=== PATIENT | female | born 1960 | race Caucasian/White ===

== ENCOUNTER → 2019-03-02 | Outpatient (CLI) | payer BC ==
--- NOTE | 2019-03-02 12:50 | Diagnostic Imaging Report ---
INDICATION: Chest pain. COMPARISON: 12/26/2007. FINDINGS: Frontal and lateral views of the chest demonstrate midline sternal wires. The heart is slightly enlarged. The lungs are clear. There is no pneumothorax. No soft tissue gas collection is seen. Osseous structures are normal. IMPRESSION: 1. Stable cardiac enlargement without pulmonary edema or infiltrate. 2. Stable-appearing median sternotomy. Dictated by: Dictated on workstation # [id number]
== END ==
LOC: RAD FS 12:05
PROVIDERS: ATTEND Nurse Practitioner Family
DX: I51.7 Cardiomegaly (principal); R07.89 Other chest pain; Z95.1 Presence of aortocoronary bypass graft
CPT/HCPCS: 71046

== ENCOUNTER 2019-03-23 09:46 | Outpatient (RCR) | payer BC | END 2019-04-24 | disposition home or self-care (01) | LOC: CR 09:46 | PROVIDERS: ATTEND Surgery | DX: Z48.812 Encounter for surgical aftercare following surgery on the circulatory system (principal); Z95.1 Presence of aortocoronary bypass graft | CPT/HCPCS: 93798 ==

== ENCOUNTER 2019-08-14 15:14 | Emergency (ER) | payer BC ==
[~2019-08-14] VITALS: Ht 157.5 cm; Wt 94.0 kg
--- NOTE | 2019-08-14 15:37 | Diagnostic Imaging Report ---
Patient History: Right-sided chest pain. History of asthma.. Technique: Single frontal view of the chest Comparison: 03/02/2019 FINDINGS: The lung volumes are normal. No focal consolidation is seen. No large pleural effusion or pneumothorax is seen. The cardiomediastinal silhouette is normal in size and contour. Posterior skull changes of CABG are noted. No acute osseous abnormality is seen. IMPRESSION: 1. No acute pleuroparenchymal process. Dictated by: Dictated on workstation # [id number]
[2019-08-14 15:38] LABS: HEMOGLOBIN 13.2 G/DL (11.5-16.0); MEAN CORPUSCULAR HEMOGLOBIN 29 PG (25-34); WHITE BLOOD COUNT 11.7 10^3/uL (4.3-11.0)
[2019-08-14 15:39] LABS: BASOPHILS % (AUTO) 0 % (0-10); EOSINOPHILS # (AUTO) 0.4 10^3/uL (0.0-0.3); EOSINOPHILS % (AUTO) 3 % (0-10); HEMATOCRIT 40 % (35-52); LYMPHOCYTES # (AUTO) 3.8 X 10^3 (1.0-4.0); LYMPHOCYTES % (AUTO) 33 % (12-44); MEAN CORPUSCULAR HGB CONC 33 G/DL (32-36); MEAN CORPUSCULAR VOLUME 87 FL (80-99); MEAN PLATELET VOLUME 10.7 FL (7.4-10.4); MONOCYTES # (AUTO) 1.2 X 10^3 (0.0-1.0); MONOCYTES % (AUTO) 10 % (0-12); NEUTROPHILS # (AUTO) 6.3 X 10^3 (1.8-7.8); NEUTROPHILS % (AUTO) 54 % (42-75); PLATELET COUNT 252 10^3/uL (130-400); RED CELL DISTRIBUTION WIDTH 13.3 % (10.0-14.5)
[2019-08-14 15:49] LABS: ALKALINE PHOSPHATASE 132 U/L (40-136); BILIRUBIN,TOTAL 0.3 MG/DL (0.1-1.0); BUN/CREATININE RATIO 24; CALCIUM 9.2 MG/DL (8.5-10.1); CARBON DIOXIDE 26 MMOL/L (21-32); CHLORIDE 100 MMOL/L (98-107); GFR ESTIMATED 57; GLUCOSE 108 MG/DL (70-105); POTASSIUM 4.8 MMOL/L (3.6-5.0); SODIUM 138 MMOL/L (135-145)
[2019-08-14 15:50] LABS: ALANINE AMINOTRANSFERASE 51 U/L (0-55); ALBUMIN 4.1 GM/DL (3.2-4.5); TOTAL PROTEIN 8.2 GM/DL (6.4-8.2)
[2019-08-14] MEDS ORDERED: IOHEXOL 350 MG/ML 100 ML (OMNIPAQUE 350) VIAL IV ONE (16:15)
[2019-08-14] MEDS ORDERED: HOLD METFORMIN - RECEIVED CONTRAST 20 ML VIAL IV SCH (16:15)
[2019-08-14] MEDS ORDERED: NS 100 ML (IVPB) BAG IV ONE (16:15)
[2019-08-14] MEDS ORDERED: CATHETER FLUSH 10 ML SYR IV PRN (16:15)
--- NOTE | 2019-08-14 16:15 | ED General ---
General Chief Complaint: Chest Pain Stated Complaint: SOB, CHEST PAIN Nursing Triage Note: Patient reports sudden onset of right upper chest pain rated 5/10 at noon today while working at [employer]. She states she also has shortness of breath, used her albuterol nebulizer at home around 3 pm without relief. She states she had a CABG in November of 2018. Nursing Sepsis Screen: No Definite Risk Source of Information: Patient Exam Limitations: No Limitations History of Present Illness Date Seen by Provider: Aug 14, 2019 Time Seen by Provider: 16:50 Initial Comments Patient is a 58 yo with h/o of asthma, CAD and recent CABG who reports sudden onset of right sided chest wall pain starting 4 hours prior to the arrival. Chest pain is non-radiating, sharp, worse with palpation and arm movement. Repor ts mild dyspnea with wheezing. Patient breathing treatment taken at home with improvement of symptoms. No leg pain or swelling. Patient only reports mild chest pain at this time. No nausea vomiting or sweats. No flank pain and abdominal pain shoulder pain. Timing/Duration: 1-3 Hours Severity: Moderate Modifying Factors: improves with Other (SOA) Associated Systoms: Chest Pain; No Cough; Shortness of Air Allergies and Home Medications Allergies Coded Allergies: No Known Drug Allergies (Unverified , 08/14/19) Home Medications Albuterol Sulfate 6.7 Gm Hfa.aer.ad, 6.7 GM INH q6 Prescribed by: SHANIQUE ALBERTO on 08/14/191706 Prednisone 20 Mg Tab, 40 MG PO DAILY Prescribed by: SHANIQUE ALBERTO on 08/14/191706 Patient Home Medication List Home Medication List Reviewed: Yes Review of Systems Review of Systems Constitutional: see HPI EENTM: see HPI Respiratory: see HPI Gastrointestinal: see HPI Genitourinary: see HPI Musculoskeletal: see HPI Skin: see HPI Psychiatric/Neurological: See HPI Hematologic/Lymphatic: See HPI Immunological/Allergic: see HPI All Other Systems Reviewed Negative Unless Noted: Yes Past Lnucezw-Qumrfa-Yyiqfg Hx Past Med/Social Hx: Reviewed Nursing Past Med/Soc Hx Patient Social History Alcohol Use: Rarely Uses Recreational Drug Use: No Smoking Status: Never a Smoker 2nd Hand Smoke Exposure: No Recent Foreign Travel: No Contact w/Someone Who Travel: No Recent Infectious Disease Expo: No Recent Hopitalizations: No Physical Abuse: No Sexual Abuse: No Mistreated: No Fear: No Seasonal Allergies Seasonal Allergies: No Past Medical History Surgeries: Yes CABG Respiratory: Yes Asthma Cardiac: Yes Coronary Artery Disease Neurological: No Genitourinary: No Gastrointestinal: No Musculoskeletal: No Endocrine: Yes Diabetes, Non-Insulin dep HEENT: No Cancer: No Psychosocial: No Integumentary: No Physical Exam Vital Signs Vital Signs - First Documented 08/14/19 15:15 Temp 36.8 Pulse 69 Resp 16 B/P (MAP) 166/79 (108) Pulse Ox 99 O2 Delivery Room Air Capillary Refill : Less Than 3 Seconds Height, Weight, BMI Height: '" Weight: lbs. oz. kg; 37.00 BMI Method: General Appearance: No Apparent Distress, WD/WN, Anxious Eyes: Bilateral Eye Normal Inspection, Bilateral Eye PERRL, Bilateral Eye EOMI HEENT: PERRL/EOMI, Normal ENT Inspection, Pharynx Normal Neck: Full Range of Motion, Non Tender, Supple Respiratory: Chest Non Tender, Lungs Clear, No Respiratory Distress Cardiovascular: Regular Rate, Rhythm, No Edema, No Murmur Gastrointestinal: Normal Bowel Sounds, No Organomegaly, Non Tender, Soft Back: Normal Inspection, No CVA Tenderness, No Vertebral Tenderness Extremity: Normal Inspection, Non Tender, No Calf Tenderness, No Pedal Edema Neurologic/Psychiatric: Alert, Oriented x3 Progress/Results/Core Measures Suspected Sepsis Recent Fever Within 48 Hours: No Infection Criteria Present: None New/Unexplained Altered Menta: No Sepsis Screen: No Definite Risk SIRS Temperature: Pulse: 69 Respiratory Rate: 16 Laboratory Tests 08/14/19 15:20: White Blood Count 11.7H Blood Pressure 166 /79 Mean: 108 Laboratory Tests 08/14/19 15:20: Creatinine 1.00, Platelet Count 252, Total Bilirubin 0.3 Results/Orders Lab Results Laboratory Tests Test 08/14/19 15:20 08/14/19 16:10 Range/Units White Blood Count 11.7 H 4.3-11.0 10^3/uL Red Blood Count 4.53 4.35-5.85 10^6/uL Hemoglobin 13.2 11.5-16.0 G/DL Hematocrit 40 35-52 % Mean Corpuscular Volume 87 80-99 FL Mean Corpuscular Hemoglobin 29 25-34 PG Mean Corpuscular Hemoglobin Concent 33 32-36 G/DL Red Cell Distribution Width 13.3 10.0-14.5 % Platelet Count 252 130-400 10^3/uL Mean Platelet Volume 10.7 H 7.4-10.4 FL Neutrophils (%) (Auto) 54 42-75 % Lymphocytes (%) (Auto) 33 12-44 % Monocytes (%) (Auto) 10 0-12 % Eosinophils (%) (Auto) 3 0-10 % Basophils (%) (Auto) 0 0-10 % Neutrophils # (Auto) 6.3 1.8-7.8 X 10^3 Lymphocytes # (Auto) 3.8 1.0-4.0 X 10^3 Monocytes # (Auto) 1.2 H 0.0-1.0 X 10^3 Eosinophils # (Auto) 0.4 H 0.0-0.3 10^3/uL Basophils # (Auto) 0.0 0.0-0.1 10^3/uL D-Dimer 0.63 H 0.00-0.49 UG/ML Sodium Level 138 135-145 MMOL/L Potassium Level 4.8 3.6-5.0 MMOL/L Chloride Level 100 98-107 MMOL/L Carbon Dioxide Level 26 21-32 MMOL/L Anion Gap 12 5-14 MMOL/L Blood Urea Nitrogen 24 H 7-18 MG/DL Creatinine 1.00 0.60-1.30 MG/DL Estimat Glomerular Filtration Rate 57 BUN/Creatinine Ratio 24 Glucose Level 108 H 70-105 MG/DL Calcium Level 9.2 8.5-10.1 MG/DL Corrected Calcium 9.1 8.5-10.1 MG/DL Total Bilirubin 0.3 0.1-1.0 MG/DL Aspartate Amino Transf (AST/SGOT) 50 H 5-34 U/L Alanine Aminotransferase (ALT/SGPT) 51 0-55 U/L Alkaline Phosphatase 132 40-136 U/L Troponin I < 0.30 <0.30 NG/ML Total Protein 8.2 6.4-8.2 GM/DL Albumin 4.1 3.2-4.5 GM/DL Urine Color YELLOW Urine Clarity CLEAR Urine pH 5.5 5-9 Urine Specific [place] 1.015 L 1.016-1.022 Urine Protein NEGATIVE NEGATIVE Urine Glucose (UA) NEGATIVE NEGATIVE Urine Ketones NEGATIVE NEGATIVE Urine Nitrite NEGATIVE NEGATIVE Urine Bilirubin NEGATIVE NEGATIVE Urine Urobilinogen 0.2 NORMAL MG/DL Urine Leukocyte Esterase NEGATIVE NEGATIVE Urine RBC (Auto) NEGATIVE NEGATIVE Urine RBC NONE /HPF Urine WBC 0-2 /HPF Urine Squamous Epithelial Cells 0-2 /HPF Urine Crystals NONE /LPF Urine Bacteria NEGATIVE /HPF Urine Casts PRESENT /LPF Urine Hyaline Casts 10-25 H /LPF Urine Mucus SMALL H /LPF Urine Culture Indicated NO My Orders Orders - SHANIQUE ALBERTO DO Cbc With Automated Diff (08/14/19 15:25) Comprehensive Metabolic Panel (08/14/19 15:25) Troponin I Fs (08/14/19 15:25) Chest 1 View Ap/Pa Only (08/14/19 15:25) Fibrin Degradation Products (08/14/19 15:25) Ekg Tracing (08/14/19 15:25) Ct Angio Chest W (08/14/19 16:05) Ua Culture If Indicated (08/14/19 16:06) Iohexol Injection (Omnipaque 350 Mg/Ml 1 (08/14/19 16:15) Received Contrast (Hold Metformin- Contr (08/14/19 16:15) Sodium Chloride Flush (Catheter Flush Sy (08/14/19 16:15) Ns (Ivpb) (Sodium Chloride 0.9% Ivpb Bag (08/14/19 16:15) Medications Given in ED Current Medications Medications Dose Ordered Sig/Harlan Route Start Time Stop Time Status Last Admin Dose Admin Iohexol 100 ml ONCE ONCE IV 08/14/19 16:15 08/14/19 16:16 DC 08/14/19 16:29 100 ML Sodium Chloride 10 ml NEEDED PRN IV 08/14/19 16:15 08/14/19 16:29 10 ML Sodium Chloride 100 ml ONCE ONCE IV 08/14/19 16:15 08/14/19 16:16 DC 08/14/19 16:29 100 ML Vital Signs/I&O 08/14/19 08/14/19 15:15 15:15 Temp 36.8 Pulse 69 Resp 16 B/P (MAP) 166/79 (108) Pulse Ox 99 O2 Delivery Room Air Room Air Capillary Refill : Less Than 3 Seconds Blood Pressure Mean: 108 Departure Communication (Admissions) EKG, labs, imaging studies reviewed. Symptoms most consistent with asthma exace rbation. Lab otherwise reassuring. I did discuss with the patient the abnormal CT findings of epigastric lymph nodes with instructions to follow up with PCP. Patient denies signs or symptoms suggestive of GI infection. Patient may benefit from a dedicated CT scan of the abdomen and pelvis in 2-3 weeks along for potential resolution of large lymph nodes if secondary to infectious cause. Patient verbalizes understanding and agreement discharge instructions and is comfortable with discharge plan. Impression Primary Impression: Chest wall pain Additional Impression: Asthma Disposition: HOME, SELF-CARE Condition: Stable Departure-Patient Inst. Referrals: [facility] (PCP) Primary Care Physician TESS TIM APRN (Family) Primary Care Physician Patient Instructions: Asthma, Adult (DC), Chest Pain Add. Discharge Instructions: Please take newly prescribed medications. Follow-up with your PCP in the next 3- 5 days and review ED visit, labs and abnormal CT result. You may benefit from a dedicated CT abdomen and pelvis next to 3 weeks. In the meantime, return to the ED if new or worsening symptoms. All discharge instructions reviewed with patient and/or family. Voiced understanding. Scripts Albuterol Sulfate (Proventil Hfa) 6.7 Gm Hfa.aer.ad 6.7 GM INH q6, #1 GM Prov: SHANIQUE ALBERTO DO 08/14/19 Prednisone (Prednisone) 20 Mg Tab 40 MG PO DAILY, #6 TAB 0 Refills Prov: SHANIQUE ALBERTO DO 08/14/19 SHANIQUE ALBERTO DO Aug 14, 2019 16:15
[2019-08-14 16:27] LABS: CLARITY,URINE CLEAR; COLOR,URINE YELLOW; GLUCOSE, URINE (UA) NEGATIVE (NEGATIVE); PH,URINE 5.5 (5-9); PROTEIN,URINE NEGATIVE (NEGATIVE)
[2019-08-14 16:28] LABS: BACTERIA,URINE NEGATIVE /HPF; BILIRUBIN,URINE NEGATIVE (NEGATIVE); KETONES,URINE NEGATIVE (NEGATIVE); LEUKOCYTE ESTERASE ,URINE NEGATIVE (NEGATIVE); NITRITE,URINE NEGATIVE (NEGATIVE); SQUAMOUS EPITHELIAL CELL,UR 0-2 /HPF; WBC,URINE 0-2 /HPF
--- NOTE | 2019-08-14 16:51 | Diagnostic Imaging Report ---
PROCEDURE: CT angiography of the chest with contrast. TECHNIQUE: Multiple contiguous axial images were obtained through the chest after uneventful bolus administration of intravenous contrast. 3D reconstructed CTA MIP acquisitions were also performed. Auto Exposure Controls were utilized during the CT exam to meet ALARA standards for radiation dose reduction. INDICATION: Right-sided chest pain. Shortness of air. COMPARISON: None FINDINGS: There is no CT evidence of pulmonary embolus to the 1st subsegmental division of the pulmonary arteries. There is mild scattered calcified and noncalcified aortic atherosclerosis. Note is also made of at least moderate calcified coronary atherosclerotic disease. The heart is mildly enlarged. There is no large pericardial effusion. No pathologically enlarged or morphologically abnormal adenopathy is seen within the mediastinum, carlos, or axilla. Evaluation of the lung blas demonstrates no focal consolidation, large effusion, or pneumothorax. 6 mm micronodules noted within the posterior medial margins of the right apex (image 19, series 4). Osseous structures show no acute abnormalities. Sternotomy wires are noted. Included portions of the upper abdomen show a few prominent appearing perigastric lymph nodes. The largest of these is seen posterior to the left lobe of the liver superior to the pancreas and measures 2.1 x 1.7 cm (image 108, series 3). IMPRESSION: 1. No evidence of acute pulmonary embolus. 2. No other acute cardiopulmonary process identified. 3. Small micronodule within the posterior medial right apex. Please see below for follow-up recommendations. 4. Prominent perigastric lymph nodes within the upper abdomen. These are of uncertain significance or etiology. May want to consider follow-up dedicated CT of the abdomen. PULMONARY NODULE FOLLOW-UP Single nodule: <6 mm: * Low risk patient - no routine follow up * High risk patient - optional at 12 months 6-8 mm in size: * Low risk patient - Ct at 6-12 months, then consider at 18-24 months * High risk patient - Ct at 6-12 months, then at 18-24 months >8 mm * Low risk patient - consider CT at 3 months, PET/CT or tissue sampling * High risk patient - consider CT at 3 months, PET/CT, or tissue sampling (Certain patients at high risk with suspicious nodule morphology, upper lobe location, or both may warrant 12-month follow-up) Dictated by: Dictated on workstation # [id number]
[2019-08-14] MEDS ORDERED: PRD20T PO (17:07)
[2019-08-14] MEDS ORDERED: ALBU6.7H8 INH (17:07)
[2019-08-14 17:33] VITALS: BP 149/82
== END 2019-08-14 17:41 | disposition home or self-care (01) ==
LOC: EDUNIT# 15:14 → ER FS 15:15
DX: R07.89 Other chest pain (principal); J45.909 Unspecified asthma, uncomplicated; E11.9 Type 2 diabetes mellitus without complications; I25.10 Atherosclerotic heart disease of native coronary artery without angina pectoris; Z95.1 Presence of aortocoronary bypass graft
CPT/HCPCS: 36415; 71045; 71275; 80053; 81000; 84484; 85025; 85379; 93005

== ENCOUNTER → 2019-08-24 | Outpatient (CLI) | payer BC ==
[~2019-08-24] MED LIST: ALBU6.7H8 INH; PRD20T PO
--- NOTE | 2019-08-24 10:08 | Diagnostic Imaging Report ---
PROCEDURE: CT abdomen and pelvis without contrast. TECHNIQUE: Multiple contiguous axial images were obtained through the abdomen and pelvis without the use of intravenous contrast. Auto Exposure Controls were utilized during the CT exam to meet ALARA standards for radiation dose reduction. INDICATION: Periportal and perigastric lymph nodes in the upper abdomen were partially visualized on recent chest CT. Abdominal CT performed as further evaluation. No priors for direct comparison. Study correlated with overlapped images obtained at chest CT 08/14/2019. FINDINGS: Node at the leonard hepatis just above the pancreatic head today measures 1.8 x 1.3 cm previously 2.1 x 1.6 cm. Previously there were some small lymph nodes medial to the gastric cardia and fundus which are no longer appreciable. A small portacaval lymph node today has a diameter of 11 mm and previously had a long axis of 17 mm. No suspicious or dominant obed mass. No adverse development. The favorable changes suggest reduction and mild nonspecific reactive mesenteric adenopathy. Spleen size is normal. There are multiple benign calcified splenic granulomata chronic. The unopacified liver parenchyma appeared unremarkable. The gallbladder at this exam appeared within normal limits. There is no bile duct dilatation. The adrenals are negative. The kidneys unobstructed and normal. There is no bowel obstruction. There is no ascites, abscess, hematoma or fluid collection. Uterus, adnexa and unopacified urinary bladder unremarkable. The appendix surgically absent. IMPRESSION: Improvements in mild shotty mesenteric lymph nodes within normal limits on follow-up suggests reduction or resolution of prior mild nonspecific reactive obed disease. No acute or suspicious finding. No adverse development. Dictated by: Dictated on workstation # [id number]
== END ==
LOC: RAD FS 09:42
PROVIDERS: ATTEND Nurse Practitioner Family
DX: R59.0 Localized enlarged lymph nodes (principal); R19.7 Diarrhea, unspecified
CPT/HCPCS: 74176

== ENCOUNTER 2019-10-19 01:43 | Emergency (ER) | payer BC ==
[~2019-10-19] VITALS: Ht 157.5 cm; Wt 98.6 kg
[2019-10-19] MEDS ORDERED: RT-ALBUTEROL/IPRATROPIUM 3 ML (DUONEB) VIAL INH ONE (02:00)
--- NOTE | 2019-10-19 02:05 | ED Dyspnea ---
General Chief Complaint: Respiratory Problems Stated Complaint: SOB Source of Information: Patient, Family History of Present Illness Date Seen by Provider: Oct 19, 2019 Time Seen by Provider: 01:44 Initial Comments 59 -year-old female presenting with complaints of shortness of breath. She has been coughing for the last few weeks. Today she was having increased shortness of breath. She felt like she could not catch her breath. She did have tightness in her chest and said that it was going through to her back. She has no nausea or vomiting. She denies any pain going up into her neck or jaw. She is occasionally bringing up some phlegm that is white to yellow-colored. She has taken several hits off of her inhaler today to try and help with her cough and shortness of breath. She was still feeling like she couldn't catch her breath. She does feel like it was worse when she tries down. She also has noticed that she had some increased swelling in her legs and feet the last few days. This do es improve by morning when she has her feet up overnight. She does have a history of being diabetic, hypertensive, asthmatic, and having coronary artery disease with a four-vessel CABG in November 2018. Allergies and Home Medications Allergies Coded Allergies: No Known Drug Allergies (Unverified , 08/14/19) Home Medications Albuterol Sulfate 6.7 Gm Hfa.aer.ad, 6.7 GM INH q6 Prescribed by: SHANIQUE ALBERTO on 08/14/191706 Prednisone 20 Mg Tab, 40 MG PO DAILY Prescribed by: SHANIQUE ALBERTO on 08/14/191706 Patient Home Medication List Home Medication List Reviewed: Yes Review of Systems Review of Systems Constitutional: No chills, No fever EENTM: other (feels that she is dry); No ear pain, No epistaxis, No nose congestion Respiratory: cough, dyspnea on exertion; No hemoptysis; orthopnea, phlegm (at times she is bringing up yellow-colored phlegm with cough ), short of breath; No stridor; wheezing (occasionally) Cardiovascular: chest pain (tightness in chest and pain from coughing so much), edema (in feet and ankles in last few days but better by morning after having her feet up overnight), palpitations (after using inhaler frequently); No syncope; vascular heart diseas Gastrointestinal: no symptoms reported Genitourinary: no symptoms reported Musculoskeletal: other (chest wall pain from coughing so much in last few weeks) Skin: No rash Psychiatric/Neurological: No Symptoms Reported Past Nrwgpyj-Wqydge-Deqmba Hx Past Med/Social Hx: Reviewed Nursing Past Med/Soc Hx Patient Social History 2nd Hand Smoke Exposure: No Recent Foreign Travel: No Contact w/Someone Who Travel: No Recent Hopitalizations: No Seasonal Allergies Seasonal Allergies: No Past Medical History Surgeries: Yes CABG Respiratory: Yes Asthma Cardiac: Yes Coronary Artery Disease, High Cholesterol, Hypertension Neurological: No Genitourinary: No Gastrointestinal: No Musculoskeletal: No Endocrine: Yes Diabetes, Non-Insulin dep HEENT: No Cancer: No Psychosocial: No Integumentary: No Physical Exam Vital Signs Vital Signs - First Documented 10/19/19 10/19/19 01:57 02:04 Temp 37.4 Pulse 74 Resp 24 B/P (MAP) 163/53 (89) Pulse Ox 94 O2 Delivery Room Air O2 Flow Rate 2.00 Capillary Refill : Height, Weight, BMI Height: '" Weight: lbs. oz. kg; 37.00 BMI Method: General Appearance: No Apparent Distress, WD/WN HEENT: PERRL/EOMI, Pharynx Normal Neck: Full Range of Motion, Normal Inspection, Non Tender, Supple; No Carotid Bruit Respiratory: Lungs Clear, Normal Breath Sounds; No No Accessory Muscle Use, No No Respiratory Distress, No Crackles; Decreased Breath Sounds; No Stridor, No Wheezing; Other (tender to palpation of anterior chest wall) Cardiovascular: Regular Rate, Rhythm, No Gallop, No JVD, No Murmur, Normal Peripheral Pulses, Other (trace to 1+ edema in BLE) Gastrointestinal: Normal Bowel Sounds, No Pulsatile Mass, Non Tender, Soft Extremity: Normal Capillary Refill, Normal Range of Motion, Non Tender, No Calf Tenderness, Pedal Edema (trace to 1+ edema in BLE) Neurologic/Psychiatric: Alert, Oriented x3, No Motor/Sensory Deficits, Normal 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, 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 Skin: Normal Color, Warm/Dry Progress/Results/Core Measures Results/Orders Lab Results Laboratory Tests Test 10/19/19 02:12 Range/Units White Blood Count 10.7 4.3-11.0 10^3/uL Red Blood Count 4.13 L 4.35-5.85 10^6/uL Hemoglobin 11.8 11.5-16.0 G/DL Hematocrit 36 35-52 % Mean Corpuscular Volume 88 80-99 FL Mean Corpuscular Hemoglobin 29 25-34 PG Mean Corpuscular Hemoglobin Concent 33 32-36 G/DL Red Cell Distribution Width 13.1 10.0-14.5 % Platelet Count 200 130-400 10^3/uL Mean Platelet Volume 10.5 H 7.4-10.4 FL Neutrophils (%) (Auto) 63 42-75 % Lymphocytes (%) (Auto) 26 12-44 % Monocytes (%) (Auto) 8 0-12 % Eosinophils (%) (Auto) 3 0-10 % Basophils (%) (Auto) 0 0-10 % Neutrophils # (Auto) 6.7 1.8-7.8 X 10^3 Lymphocytes # (Auto) 2.8 1.0-4.0 X 10^3 Monocytes # (Auto) 0.8 0.0-1.0 X 10^3 Eosinophils # (Auto) 0.3 0.0-0.3 10^3/uL Basophils # (Auto) 0.0 0.0-0.1 10^3/uL Sodium Level 138 135-145 MMOL/L Potassium Level 4.3 3.6-5.0 MMOL/L Chloride Level 103 98-107 MMOL/L Carbon Dioxide Level 23 21-32 MMOL/L Anion Gap 12 5-14 MMOL/L Blood Urea Nitrogen 17 7-18 MG/DL Creatinine 0.79 0.60-1.30 MG/DL Estimat Glomerular Filtration Rate > 60 BUN/Creatinine Ratio 22 Glucose Level 232 H 70-105 MG/DL Calcium Level 9.0 8.5-10.1 MG/DL Corrected Calcium 9.2 8.5-10.1 MG/DL Magnesium Level 2.0 1.6-2.4 MG/DL Total Bilirubin 0.3 0.1-1.0 MG/DL Aspartate Amino Transf (AST/SGOT) 42 H 5-34 U/L Alanine Aminotransferase (ALT/SGPT) 47 0-55 U/L Alkaline Phosphatase 154 H 40-136 U/L Troponin I < 0.30 <0.30 NG/ML Pro-B-Type Natriuretic Peptide 2007.0 H <75.0 PG/ML Total Protein 7.5 6.4-8.2 GM/DL Albumin 3.8 3.2-4.5 GM/DL My Orders Orders - KELSIE FERNANDES MD Cbc With Automated Diff (10/19/19 01:57) Comprehensive Metabolic Panel (10/19/19 01:57) Albuterol/Ipra Inhalation Soln (Duoneb I (10/19/19 02:00) Magnesium (10/19/19 01:57) Chest Pa/Lat (2 View) (10/19/19 01:57) Ekg Tracing (10/19/19 01:57) O2 (10/19/19 01:57) Ed Iv/Invasive Line Start (10/19/19 01:57) Sputum Culture (10/19/19 01:57) Monitor-Rhythm Ecg Trace Only (10/19/19 01:57) Svn Small Volume Nebulizer (10/19/19 01:57) Troponin I Fs (10/19/19 01:57) Probnp Fs (10/19/19 01:57) Medications Given in ED Current Medications Medications Dose Ordered Sig/Harlan Route Start Time Stop Time Status Last Admin Dose Admin Albuterol/ Ipratropium 3 ml ONCE ONCE INH 10/19/19 02:00 10/19/19 02:01 DC 10/19/19 02:04 3 ML Vital Signs/I&O 10/19/19 10/19/19 10/19/19 10/19/19 01:57 02:04 02:13 03:16 Temp 37.4 37.2 Pulse 74 62 Resp 24 20 B/P (MAP) 163/53 (89) 146/45 Pulse Ox 94 91 91 98 O2 Delivery Room Air Nasal Cannula Nasal Cannula Nasal Cannula O2 Flow Rate 2.00 2.00 Progress Progress Note #1: Progress Note check basic labs and CXR with ECG for her shortness of breath with cough. Since she is having edema in LE she could be having some heart failure on top of her asthma. She may also be having just an Asthma exacerbation, or pneumonia, or viral URI with bronchospasm, or new cardiac disease/UT with resulting pulmonary edema/dyspnea. Will try a Duoneb treatment while seeing what her labs, CXR and ECG demonstrate. Progress Note #2: Time: 02:46 Progress Note CBC is stable without elevation of her white blood cell count and hemoglobin is stable at 11.8. Her chemistry shows an elevated glucose level at 233. Her troponin is less than 0.3. Her other electrolytes are normal without acute significant abnormality. Her chest x-ray on my review of the 2 view chest films shows increased pulmonary vascular congestion with some fluid in the right fissure. I did not appreciate any acute infiltrate. After that DuoNeb breathing treatment her O2 sat remained in the 98-100% range. Her BNP is elevated to 2007. I do not have prior value to compare to for her. However considering her chest x-ray and the increased edema in her legs she likely is having some fluid retention and mild CHF exacerbation. This would help explain her increased difficulty breathing with the combination of some fluid overload on top of her asthma and a possible viral or respiratory illness. We will try giving her a dose of Lasix and discuss with the patient about increasing her Lasix at home. She states that she has not been has regular with taking this recently. Progress Note #3: Progress Note pt felt like she was breathing better. will have her increase her lasix from 40 to 80 mg for the next 3 days and see how she does with that. Also advised that she could increase her breathing treatments to every 4 hours while awake if needed for shortness of breath and cough. Check back with clinic and if worsening return or seek medical care sooner. Initial ECG Impression Date: Oct 19, 2019 Initial ECG Impression Time: 02:25 Initial ECG Rate: 73 Initial ECG Rhythm: Normal Sinus Initial ECG Comparisson: Unchanged Comment Sinus rhythm with a heart rate of 72 bpm. IA interval [address] elevation. QT interval of 406 ms and QT corrected interval 448 ms. She has no acute change from prior tracings. Diagnostic Imaging Diagonstic Imaging: Xray Plain Films/CT/US/NM/MRI: chest Comments On my review of her 2 view CXR she has increased pulmonary vascular congestion with some fluid in the right fissure. No effusion is seen. No definite infiltr ate. Reviewed: Reviewed by Me Departure Impression Primary Impression: Pulmonary edema Qualified Codes: J81.0 - Acute pulmonary edema Additional Impressions: Shortness of breath Asthma exacerbation Qualified Codes: J45.41 - Moderate persistent asthma with (acute) exacerbation Disposition: 01 HOME, SELF-CARE Condition: Stable Departure-Patient Inst. Decision time for Depature: 03:09 Referrals: [facility] (PCP) Primary Care Physician TESS TIM APRN (Family) Primary Care Physician Patient Instructions: Heart Failure, Adult (DC), Shortness of Breath (Dyspnea) (DC), Asthma, Adult (DC) Add. Discharge Instructions: For the next 3 days double your dose of Furosemide (Lasix) from 40 mg to 80 mg a day to help get more fluid off your lungs and legs. This will help with your shortness of breath and cough Check with Tess Tim in clinic this next week about your breathing or return if having worsening symptoms You could use your inhaler or nebulizer up to every 4 hours if you need to for shortness of breath and cough. All discharge instructions reviewed with patient and/or family. Voiced understanding. KELSIE FERNANDES MD Oct 19, 2019 02:05
[2019-10-19 02:18] LABS: BASOPHILS % (AUTO) 0 % (0-10); EOSINOPHILS # (AUTO) 0.3 10^3/uL (0.0-0.3); EOSINOPHILS % (AUTO) 3 % (0-10); HEMATOCRIT 36 % (35-52); HEMOGLOBIN 11.8 G/DL (11.5-16.0); LYMPHOCYTES # (AUTO) 2.8 X 10^3 (1.0-4.0); LYMPHOCYTES % (AUTO) 26 % (12-44); MEAN CORPUSCULAR HEMOGLOBIN 29 PG (25-34); MEAN CORPUSCULAR HGB CONC 33 G/DL (32-36); MEAN CORPUSCULAR VOLUME 88 FL (80-99); MEAN PLATELET VOLUME 10.5 FL (7.4-10.4); MONOCYTES # (AUTO) 0.8 X 10^3 (0.0-1.0); MONOCYTES % (AUTO) 8 % (0-12); NEUTROPHILS # (AUTO) 6.7 X 10^3 (1.8-7.8); NEUTROPHILS % (AUTO) 63 % (42-75); PLATELET COUNT 200 10^3/uL (130-400); RED CELL DISTRIBUTION WIDTH 13.1 % (10.0-14.5); WHITE BLOOD COUNT 10.7 10^3/uL (4.3-11.0)
[2019-10-19 02:41] LABS: ALKALINE PHOSPHATASE 154 U/L (40-136); BILIRUBIN,TOTAL 0.3 MG/DL (0.1-1.0); BUN/CREATININE RATIO 22; CARBON DIOXIDE 23 MMOL/L (21-32); CHLORIDE 103 MMOL/L (98-107); CREATININE SERUM 0.79 MG/DL (0.60-1.30); GFR ESTIMATED > 60; GLUCOSE 232 MG/DL (70-105); POTASSIUM 4.3 MMOL/L (3.6-5.0); SODIUM 138 MMOL/L (135-145)
[2019-10-19 02:42] LABS: ALANINE AMINOTRANSFERASE 47 U/L (0-55); ALBUMIN 3.8 GM/DL (3.2-4.5); TOTAL PROTEIN 7.5 GM/DL (6.4-8.2)
[2019-10-19 03:16] VITALS: BP 146/45
--- NOTE | 2019-10-19 06:41 | Diagnostic Imaging Report ---
INDICATION: Shortness of breath. Comparison made with prior examination 08/14/2019. FINDINGS: The heart size is normal. There is venous congestion. There are patchy bibasilar infiltrates. There is no pleural effusion or pneumothorax. There has been previous median sternotomy. IMPRESSION: Patchy bibasilar infiltrates. Central pulmonary venous congestion. Dictated by: Dictated on workstation # [id number]
== END 2019-10-19 03:18 | disposition home or self-care (01) ==
LOC: EDUNIT# 01:43 → ER FS 01:48
DX: J81.1 Chronic pulmonary edema (principal); J45.901 Unspecified asthma with (acute) exacerbation; E11.9 Type 2 diabetes mellitus without complications; I10 Essential (primary) hypertension; I25.10 Atherosclerotic heart disease of native coronary artery without angina pectoris; E78.00 Pure hypercholesterolemia, unspecified; Z95.1 Presence of aortocoronary bypass graft; Z79.52 Long term (current) use of systemic steroids
CPT/HCPCS: 36415; 71046; 80053; 83735; 83880; 84484; 85025; 93005; 93041; 94640

== ENCOUNTER → 2020-04-28 | Outpatient (CLI) | payer OTHER ==
--- NOTE | 2020-04-28 15:01 | Diagnostic Imaging Report ---
INDICATION: Blood pressure issues and difficult breathing. TIME OF EXAM: 2:36 PM. COMPARISON: Correlation is made with the prior chest from 10/19/2019. FINDINGS: Changes of median sternotomy are noted. The lungs are clear. No infiltrates are detected. The pulmonary vascularity is normal. No infiltrate, effusion, or pneumothorax is identified. IMPRESSION: No acute cardiopulmonary process is detected. Dictated by: Dictated on workstation # [id number]
== END ==
LOC: RAD FS 14:25
PROVIDERS: ATTEND Nurse Practitioner Family
DX: R07.89 Other chest pain (principal); Z98.890 Other specified postprocedural states
CPT/HCPCS: 71046

== ENCOUNTER → 2021-03-11 | Outpatient (CLI) | payer OTHER ==
[2021-03-11 14:36] VITALS: BP 128/53
== END ==
LOC: CARD 14:01
PROVIDERS: ATTEND Internal Medicine Cardiovascular Disease
DX: R07.9 Chest pain, unspecified (principal)
CPT/HCPCS: 93351

== ENCOUNTER → 2021-04-15 | Outpatient (CLI) | payer OTHER ==
[~2021-04-15] VITALS: Ht 157 cm; Wt 99.0 kg
[~2021-04-15] MED LIST changes: +CATHETER FLUSH 10 ML SYR IV PRN; +REGADENOSON 0.4 MG/5 ML SYR (LEXISCAN) IV ONE
[2021-04-15 13:28] VITALS: BP 132/87
--- NOTE | 2021-04-15 17:04 | STRESS TEST ---
DATE OF SERVICE: 04/15/2021 LEXISCAN MYOVIEW STRESS TEST REPORT REFERRING PHYSICIAN: [facility], Lamar Vera. Baseline heart rate is 72. Baseline blood pressure 132/87. Baseline EKG is sinus rhythm with frequent PVCs, ventricular couplets. In summary, the patient was injected with 10.22 mCi of technetium-99 Myoview and the resting images were obtained. Then, the patient received 0.4 mg of Lexiscan followed by 31.5 mCi of technetium-99 Myoview. Images were reviewed. EKG was monitored. CONCLUSION: 1. The patient tolerated Lexiscan well. 2. Baseline frequent PVCs and ventricular couplets and one 3-beat triplets. Frequent ventricular bigeminy. 3. Breast attenuation with mild reversible ischemia involving the basal to mid anterior wall and anterolateral wall, probably secondary to breast attenuation. 4. Normal left ventricular size, EF 56%. Job ID: [id number] DocumentID: [id number] Dictated Date: 04/15/2021 15:39:52 Paedodontist Date: 04/15/2021 17:04:32 Dictated By: DEVAUGHN CAIN MD
== END ==
LOC: CARD 12:15
PROVIDERS: ATTEND Internal Medicine Cardiovascular Disease
DX: I25.10 Atherosclerotic heart disease of native coronary artery without angina pectoris (principal); I10 Essential (primary) hypertension
CPT/HCPCS: 78452; 93017; A9502

== ENCOUNTER 2021-04-24 10:00 | Day surgery (SDC) | payer OTHER ==
[~2021-04-24] VITALS: Ht 157 cm; Wt 98.0 kg
[2021-04-24] VITALS (13 sets, daily range): BP systolic 131–162; BP diastolic 62–106
[2021-04-24 08:15] LABS: HEMATOCRIT 41 % (35-52); HEMOGLOBIN 13.5 g/dL (11.5-16.0); MEAN CORPUSCULAR HEMOGLOBIN 29 pg (25-34); MEAN CORPUSCULAR HGB CONC 33 g/dL (32-36); MEAN CORPUSCULAR VOLUME 88 fL (80-99); MEAN PLATELET VOLUME 10.7 fL (9.0-12.2); PLATELET COUNT 273 10^3/uL (130-400); WHITE BLOOD COUNT 9.4 10^3/uL (4.3-11.0)
[2021-04-24 08:24] LABS: PROTHROMBIN TIME PATIENT 13.3 SEC (12.2-14.7)
[2021-04-24 08:31] LABS: BILIRUBIN,TOTAL 0.4 MG/DL (0.1-1.0); CALCIUM 9.5 MG/DL (8.5-10.1); CREATININE SERUM 1.01 MG/DL (0.60-1.30); POTASSIUM 4.5 MMOL/L (3.6-5.0)
--- NOTE | 2021-04-24 08:31 | Diagnostic Imaging Report ---
Indication: Hypertension, coronary artery disease Comparison: 08/14/2019 Findings: Single view of the chest demonstrates cardiac enlargement with slight central vascular congestion. There is no pneumothorax or effusion. Osseous structures stable. Sternal wires midline. Impression: Cardiac enlargement with slight central vascular congestion. Dictated by: Dictated on workstation # [id number]
[~2021-04-24 10:00] MED LIST changes: +AMLO-167 PO; +ASPI-999 PO; +ATOR80TA76 PO; -CATHETER FLUSH 10 ML SYR IV PRN; +FURO40TA4 PO; +GLIP1TAB6 PO; +METO50TA15 PO; +MONT10TA32 PO; +NS IV 1000 ML 1,000 ML IV SCH; +POTA10TA36 PO; -REGADENOSON 0.4 MG/5 ML SYR (LEXISCAN) IV ONE; +VIT1TABL57 PO; +[UNRECOGNIZED DRUG - OTHER] PO
[2021-04-24] MEDS ORDERED: fentaNYL INJ 100 MCG/2 ML AMP ONE (10:14)
[2021-04-24] MEDS ORDERED: MIDAZOLAM 5 MG/5 ML (VERSED) VIAL ONE (10:15)
--- NOTE | 2021-04-24 11:08 | Conscious Sedation/ASA ---
Conscious Sedation Pre-Proced Time 10:00 ASA Score 3 For ASA 3 and 4: Consider anesthesia and medical clearance. Also, for patients with a history of failed moderate sedation consider anesthesia. Airway Lungs Heart ASA score ASA 1: a normal healthy patient ASA 2: a patient with a mild systemic disease (mid diabetes, controlled hypertension, obesity x ASA 3: a patient with a severe systemic disease that limits activity (angina, COPD, prior Myocardial infarction) ASA 4: a patient with an incapacitating disease that is a constant threat to life (CHF, renal failure) ASA 5: a moribund patient not expected to survive 24 hrs. (ruptured aneurysm) ASA 6: a declared brain- patient whose organs are being harvested. For emergent operations, add the letter E after the classification Mallampati Classification Grade 3 Sedation Plan Analgesia, Amnesia, Plan communicated to team members, Discussed options with patient/fam, Discussed risks with patient/fam The patient is an appropriate candidate to undergo the planned procedure, sedation, and anesthesia. The patient immediately re-assessed prior to indication. DEVAUGHN CAIN MD Apr 24, 2021 11:08
--- NOTE | 2021-04-24 11:10 | Discharge Inst-Post CATH ---
Discharge Inst-CATH/EP Problems Reviewed?: Yes Post Cardiac Cath/EP D/C Inst Follow Up/Plan Appointment with Dr Mercado in 2-4 weeks <b>CARDIAC CATH/EP PROCEDURE DISCHARGE INSTRUCTIONS</b> ACTIVITY * Go Home directly and rest. * Limit activity of the leg (or wrist if it was used) for 7 days including aerobics, swimming, jogging, bicycling, etc. * Restrict stair-climbing for 7 days if possible, if not, climb up with your non-cath leg, then bring together on the same step. * Avoid lifting, pushing, pulling or excessive movement of the affected extremity for 7 days. * Customary sexual activity may be resumed after 2 days-use caution not to use a position that strains or causes pain to the affected extremity. * No driving for 24 hours. * NO SMOKING. * Avoid straining for bowel movements for 7 days. * Gentle walking on level ground is allowed. * Returning to work will depend on the type of procedure and the results. Your doctor will discuss this with you. CALL YOUR DOCTOR FOR ANY OF THE FOLLOWING: *If bleeding from the puncture site occurs- Apply gentle pressure to site with clean cloth and call your doctor or EMS. * If a knot or lump forms under the skin, increases in size, or causes pain. * If bruising appears to be worsening or moving further down your leg instead of disappearing. * Temperature above 101 F. CARE OF YOUR GROIN INCISION; * Bruising or purple discoloration of the skin near the puncture site is common. * You may shower only, no bathtub bathing for 5 days. Be careful to avoid slipping as your leg may feel stiff. * If a closure device was used on your femoral artery, please see the attached guide regarding care of the device and your leg. * Leave dressing on FOR 24 hours. CARE OF YOUR WRIST INCISION; * Bruising or purple discoloration of the skin near the puncture site is common. * You may shower. * DO NOT submerge wrist. * Leave dressing on FOR 24 hours. DEVAUGHN MERCADO MD Apr 24, 2021 11:10
[2021-04-24] MEDS ORDERED: NS IV 1000 ML 1,000 ML IV SCH (11:15)
[2021-04-24] MEDS ORDERED: PATIENT MAY USE OWN MEDS, ALL PO SCH (11:15)
--- NOTE | 2021-04-24 11:16 | Cardiac Cath Report ---
Cardiac Cath Report Physician (s)/Associate Professor Of Pathology (s) Physician DEVAUGHN CAIN MD Pre-Procedure Diagnosis Pre-Procedure Diagnosis: Coronary artery disease Post-Procedure Note Procedure Start Date: Apr 24, 2021 Name of Procedure: Left heart catheterization Vein graft angiogram GALEANA angiogram Aortic root angiogram Aortic arch angiogram Findings/Procedure Note PROCEDURE NOTE: 60 years old lady with history of coronary artery disease, CABG, had an abnormal stress test, scheduled for cardiac catheterization possible PTCA After explaining the procedure to the patient, all pros and cons were explained, all questions were answered. The patient signed the consent and then she was placed on the cardiac catheterization laboratory. Groin was prepped SL fashion local anesthesia was used. Sheath placed in the artery. Robbin right and left catheter were used to access the coronary system.Vein Graft evaluated. GALEANA evaluated. Pigtail was used to access the left ventricular cavity. Left ventriculogram was not done, pressure was measured Aortic arch angiogram was done due to the heavy calcification in the aortic arch and aortic root angiogram also was done. At the end of the procedure the sheath was removed. Closure device was deployed FINDINGS: Hemodynamics LV 106/13, end-diastolic pressure of 13 Aorta 104/45 mean of 69 ANATOMY: Left Main is free of obstructive disease Left Anterior Descending has moderate stenosis at the midportion, GALEANA to LAD is patent Left Circumflex is moderate in size, the first obtuse marginal branch is smaller artery with moderate stenosis proximally, the second obtuse marginal branch has moderate stenosis, the vein graft to the obtuse marginal branch is occluded Right Coronary Artery is moderate in size with severe mid right coronary artery stenosis, the vein graft to the right coronary artery is patent GALEANA to LAD is patent with small vessel disease distally Vein Graft evaluation showed only 1 patent vein graft which is the vein graft to the right coronary artery and it it is attached to the distal right coronary artery with good flow. Patient was reported to have a total of 4 bypass graft, only 2 were identified LV Gram was not done Aorta evaluation done with aortic root angiogram which showed calcification in the aortic root, no dissection or aneurysm, no significant aortic regurgitation Aortic arch angiogram was done showing atherosclerotic plaques in the aortic arch, no dissection or aneurysm, normal origin of the left subclavian artery, left carotid and brachiocephalic artery CONCLUSION: 1. Severe stenosis in the proximal right coronary artery with patent vein graft to the right coronary artery with small vessel disease distally 2. Moderate stenosis in the proximal and mid LAD with patent GALEANA to LAD with good flow distally, small vessel disease. 3. Patient reported having CABG x4, only 2 bypass graft were identified, probably the other 2 vein grafts were to the diagonal and obtuse marginal branch and they were occluded 4. Moderate stenosis in the proximal first obtuse marginal branch and at the mid second OM 5. Normal left ventricular end-diastolic pressure DISCUSSION AND RECOMMENDATION: Medical therapy is recommended no intervention is needed Anesthesia Type: Conscious Sedation Estimated blood loss (mL): 35 ml Contrast Amount: 135 ml Total Radiation Dose: 937 mGy Post-Procedure Diagnosis Post-operative diagnosis: Coronary artery disease Chest pain Hypertension Hyperlipidemia DEVAUGHN CAIN MD Apr 24, 2021 11:16 am
== END 2021-04-24 15:50 | disposition home or self-care (01) ==
LOC: CATH 10:00 → SDC 11:25 → CATH 15:50
PROVIDERS: ATTEND Internal Medicine Cardiovascular Disease
DX: R94.39 Abnormal result of other cardiovascular function study (principal); I25.10 Atherosclerotic heart disease of native coronary artery without angina pectoris; I10 Essential (primary) hypertension; E78.5 Hyperlipidemia, unspecified; I25.89 Other forms of chronic ischemic heart disease; I49.3 Ventricular premature depolarization; E11.9 Type 2 diabetes mellitus without complications; I65.23 Occlusion and stenosis of bilateral carotid arteries; Z79.899 Other long term (current) drug therapy; Z79.82 Long term (current) use of aspirin; Z95.1 Presence of aortocoronary bypass graft
CPT/HCPCS: 36221; 71045; 80053; 80061; 85027; 85610; 85730; 87081; 93459; 93567; C1760; C1894; 36415

== ENCOUNTER → 2021-06-25 | Outpatient (CLI) | payer OTHER ==
[~2021-06-25] MED LIST changes: -NS IV 1000 ML 1,000 ML IV SCH
--- NOTE | 2021-06-25 09:14 | Diagnostic Imaging Report ---
PROCEDURE: US Hepatic (Liver). TECHNIQUE: Multiple real-time grayscale images were obtained over the right upper quadrant in various projections. INDICATION: Elevated liver enzymes Liver parenchyma has increased echogenicity consistent with fatty infiltration. Gallbladder is clear with no stones or wall thickening. Common duct is not dilated. Portal vein is patent with hepatopetal flow. Pancreas appears normal. Right kidney measures 11.8 cm in length and appears normal. There is no ascites. Aorta and IVC appear normal. IMPRESSION: Hepatic steatosis Dictated by: Dictated on workstation # [id number]
== END ==
LOC: RAD FS 08:06
PROVIDERS: ATTEND Internal Medicine Gastroenterology
DX: B18.2 Chronic viral hepatitis C (principal); K76.0 Fatty (change of) liver, not elsewhere classified
CPT/HCPCS: 76705

== ENCOUNTER → 2021-08-10 | Outpatient (CLI) | payer OTHER ==
--- NOTE | 2021-08-10 09:10 | Diagnostic Imaging Report ---
CLINICAL INDICATION: Patient with pain in the thoracic spine. No known injury. EXAM: X-ray of the thoracic spine, AP and lateral views. COMPARISON: None. FINDINGS: Limited visualization of the upper thoracic spine on the lateral view due to overlapping anatomical structures. There is no acute thoracic spine fracture or dislocation. There are moderately hypertrophic spurs throughout the thoracic spine. Sternotomy changes are noted. IMPRESSION: Thoracic spine degenerative disease with no acute fracture or dislocation. Dictated by: Dictated on workstation # [id number]
== END ==
LOC: RAD FS 08:33
PROVIDERS: ATTEND Nurse Practitioner Family
DX: M47.814 Spondylosis without myelopathy or radiculopathy, thoracic region (principal)
CPT/HCPCS: 72070

== ENCOUNTER → 2021-10-05 | Outpatient (CLI) | payer OTHER ==
[~2021-10-05] VITALS: Ht 157.5 cm; Wt 100.0 kg
[~2021-10-05] MED LIST changes: +ACETAMINOPHEN 500 MG TAB (TYLENOL) PO PRN; +BAMLANIVIMAB 700 MG/ETESEVIMAB 1,400 MG IN NS IV ONE; +EPINEPHrine INJECTION 1 MG/ML AMP IM PRN; +MONT-40 PO; -MONT10TA32 PO; +ONDANSETRON 4 MG/2 ML (SDV) Z0FRAN IV PRN; -POTA10TA36 PO; +POTA10TA37 PO; +diphenhydrAMINE 50 MG/ML INJ (BENADRYL) IV PRN
[2021-10-05 10:53] VITALS: BP 125/49
[2021-10-05 12:23] VITALS: BP 141/53
== END ==
LOC: INFUSION 10:48
PROVIDERS: ATTEND Nurse Practitioner Family
DX: U07.1 COVID-19 (principal)

== ENCOUNTER → 2022-03-04 | Outpatient (CLI) | payer OTHER ==
[~2022-03-04] MED LIST changes: -ACETAMINOPHEN 500 MG TAB (TYLENOL) PO PRN; -BAMLANIVIMAB 700 MG/ETESEVIMAB 1,400 MG IN NS IV ONE; -EPINEPHrine INJECTION 1 MG/ML AMP IM PRN; -ONDANSETRON 4 MG/2 ML (SDV) Z0FRAN IV PRN; +RT-ALBUTEROL SULF 2.5 MG/3 ML PRE-MIX VIAL INH ONE; -diphenhydrAMINE 50 MG/ML INJ (BENADRYL) IV PRN
== END ==
LOC: RT 14:15
PROVIDERS: ATTEND Nurse Practitioner Family
DX: R05.9 Cough, unspecified (principal); R06.02 Shortness of breath
CPT/HCPCS: 94060; 94726; 94729

== ENCOUNTER 2022-06-08 12:40 | Emergency (ER) | payer OTHER ==
[~2022-06-08] VITALS: Ht 157 cm; Wt 93.0 kg
[~2022-06-08 12:40] MED LIST changes: -RT-ALBUTEROL SULF 2.5 MG/3 ML PRE-MIX VIAL INH ONE
[2022-06-08 12:59] LABS: BASOPHILS # (AUTO) 0.1 10^3/uL (0.0-0.1); BASOPHILS % (AUTO) 0 % (0-10); EOSINOPHILS # (AUTO) 0.3 10^3/uL (0.0-0.3); EOSINOPHILS % (AUTO) 3 % (0-10); HEMATOCRIT 37 % (35-52); HEMOGLOBIN 12.4 g/dL (11.5-16.0); LYMPHOCYTES # (AUTO) 4.1 10^3/uL (1.0-4.0); LYMPHOCYTES % (AUTO) 33 % (12-44); MEAN CORPUSCULAR HEMOGLOBIN 29 pg (25-34); MEAN CORPUSCULAR HGB CONC 34 g/dL (32-36); MEAN CORPUSCULAR VOLUME 85 fL (80-99); MEAN PLATELET VOLUME 10.1 fL (9.0-12.2); MONOCYTES # (AUTO) 0.8 10^3/uL (0.0-1.0); MONOCYTES % (AUTO) 7 % (0-12); NEUTROPHILS # (AUTO) 7.3 10^3/uL (1.8-7.8); NEUTROPHILS % (AUTO) 58 % (42-75); PLATELET COUNT 272 10^3/uL (130-400); WHITE BLOOD COUNT 12.6 10^3/uL (4.3-11.0)
[2022-06-08 13:01] VITALS: BP_SYST 100; BP_SYST 127; BP_SYST 134; BP_DIAS 63; BP_DIAS 72; BP_DIAS 83
--- NOTE | 2022-06-08 13:09 | Diagnostic Imaging Report ---
EXAMINATION: Chest, one view. HISTORY: Chest pain. COMPARISON: 04/24/2021. FINDINGS: Heart size and pulmonary vasculature are normal. The lungs are clear without consolidation, pleural effusion, or pneumothorax. Surgical changes from median sternotomy. IMPRESSION: 1. No acute radiographic abnormality in the chest. Dictated by: Dictated on workstation # [id number]
[2022-06-08] MEDS ORDERED: NS IV 1000 ML 500 ML IV SCH (13:15)
[2022-06-08 13:29] LABS: ALANINE AMINOTRANSFERASE 20 U/L (0-55); ALKALINE PHOSPHATASE 139 U/L (40-136); BILIRUBIN,TOTAL 0.3 MG/DL (0.1-1.0); BUN/CREATININE RATIO 18; CALCIUM 9.1 MG/DL (8.5-10.1); CARBON DIOXIDE 26 MMOL/L (21-32); CHLORIDE 100 MMOL/L (98-107); CREATININE SERUM 1.16 MG/DL (0.60-1.30); GFR ESTIMATED 54; GLUCOSE 136 MG/DL (70-105); POTASSIUM 4.5 MMOL/L (3.6-5.0); SODIUM 137 MMOL/L (135-145)
[2022-06-08 13:30] LABS: ALBUMIN 4.3 GM/DL (3.2-4.5); TOTAL PROTEIN 7.8 GM/DL (6.4-8.2)
[2022-06-08 14:02] VITALS: BP 146/51
--- NOTE | 2022-06-08 14:06 | ED Cardiac General ---
History of Present Illness General Chief Complaint: Chest Pain Stated Complaint: DIZZINESS; NAUSEA; NEAR SYNCOPE Nursing Triage Note: PT REPORTS SHE HAD A CABG 2 YEARS AGO AND WHEN SHE HAD A CATH LAST YEAR THEY TOLD HER THAT 2 OF HER BYPASSES WERE PARTIALLY BLOCKED AGAIN. SHE REPORTS TUESDAY SHE BECAME DIZZY AND VOMITED IN THE BOOK STORE. SHE HAS BEEN HAVING SOME DIZZINESS WAX AND WANE FOR SEVERAL WEEKS. 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 Source: patient Exam Limitations: no limitations History of Present Illness Date Seen by Provider: Jun 08, 2022 Time Seen by Provider: 12:30 Initial Comments Patient is a 61-year-old female who presents with dizziness upon standing today while at work. Dizziness was positional and relieved with rest. She reports mild nausea denies chest pain palpitations shortness of breath. She reports feeling anxious regarding cardiac testing tomorrow. She has history of CAD, and CABG. She denies shortness of breath nausea, vomiting and sweats. No leg pain or swelling. Patient's systolic blood pressure is 86. Patient takes Lasix, losartan, amlodipine and Toprol daily. No fevers chills, sweats. No urinary frequency urgency or dysuria. No leg pain or swelling. No other acute symptoms or complaint. Timing/Duration: 1-3 hours Severity: mild Location: other Activities at Onset: none, other Prior CP/Workup: non-cardiac, other Modifying Factors: improves with other NTG SL MAT SEWER: No Associated Systoms: Other Allergies and Home Medications Allergies Coded Allergies: No Known Drug Allergies (Unverified , 08/14/19) Patient Home Medication List Home Medication List Reviewed: Yes Albuterol Sulfate (Proventil Hfa) 6.7 Gm Hfa.aer.ad, 6.7 GM INH q6 Prescribed by: SHANIQUE ALBERTO on 08/14/19 1707 Amlodipine Besylate/Benazepril (Amlodipine-Benazepril 10-40 mg) 1 Each Capsule, 1 EACH PO DAILY, (Reported) Entered as Reported by: MAHIN HACKETT on 04/24/21 0811 Aspirin (Aspirin) 81 Mg Tab.chew, 81 MG PO DAILY, (Reported) Entered as Reported by: MAHIN HACKETT on 04/24/21 0811 Atorvastatin Calcium (Atorvastatin Calcium) 80 Mg Tablet, 80 MG PO HS, (Reported) Entered as Reported by: MAHIN HACKETT on 04/24/21810 Furosemide (Furosemide) 40 Mg Tablet, 40 MG PO DAILY, (Reported) Entered as Reported by: MAHIN HACKETT on 04/24/21810 Glipizide/Metformin HCl (Glipizide-Metformin 5-500 mg) 1 Each Tablet, 1 EACH PO AC, (Reported) Entered as Reported by: MAHIN HACKETT on 04/24/21810 Metoprolol Tartrate (Metoprolol Tartrate) 50 Mg Tablet, 50 MG PO BID, (Reported) Entered as Reported by: MAHIN HACKETT on 04/24/21810 Montelukast Sodium (Montelukast Sodium) 10 Mg Tablet, 10 MG PO HS, (Reported) Entered as Reported by: MAHIN HACKETT on 04/24/21810 Potassium Chloride (Potassium Chloride) 10 Meq Tab.er.prt, 10 MEQ PO DAILY, (Reported) Entered as Reported by: MAHIN HACKETT on 04/24/21810 Vit D3 & K/Berberine HCl/Hops (Ostera Tablet) 1 Each Tablet, 1 EACH PO DAILY, (Reported) Entered as Reported by: MAHIN HACKETT on 04/24/21810 [Active Heart] , 1 EACH PO DAILY, (Reported) Entered as Reported by: MAHIN HACKETT on 04/24/21810 Review of Systems Review of Systems Constitutional: see HPI EENTM: See HPI Respiratory: See HPI Cardiovascular: See HPI Gastrointestinal: See HPI Genitourinary: See HPI Skin: see HPI Psychiatric/Neurological: See HPI Endocrine: See HPI Hematologic/Lymphatic: See HPI All Other Systems Reviewed Negative Unless Noted: No Past Nraffep-Iwctsq-Yeqyhe Hx Patient Social History Tobacco Use?: No Use of E-Cig and/or Vaping dev: No Substance use?: No Alcohol Use?: No Pt feels they are or have been: No Immunizations Up To Date Tetanus Booster (TDap): Unknown First/Initial COVID19 Vaccinat: 2020 Second COVID19 Vaccination Kapil: 2020 COVID19 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 Seasonal Allergies Seasonal Allergies: Yes Past Medical History Surgery/Hospitalization HX: CABG 1999 Surgeries: Yes CABG, Open Heart Surgery Respiratory: Yes Asthma Currently Using CPAP: No Currently Using BIPAP: No Cardiac: Yes Coronary Artery Disease, High Cholesterol, Hypertension Neurological: No Genitourinary: No Gastrointestinal: Yes Hepatitis Musculoskeletal: No Endocrine: Yes Diabetes, Non-Insulin dep HEENT: No Cancer: No Psychosocial: No Integumentary: No Physical Exam Vital Signs Vital Signs - First Documented 06/08/22 12:45 Temp 36.3 Pulse 82 Resp 18 B/P (MAP) 166/76 (106) Pulse Ox 100 O2 Delivery Room Air Capillary Refill : Less Than 3 Seconds Height, Weight, BMI Height: '" Weight: lbs. oz. kg; 37.00 BMI Method: General Appearance: WD/WN HEENT: PERRL/EOMI, TMs Normal Neck: Full Range of Motion, Normal Inspection, Non Tender Respiratory: Chest Non Tender, Lungs Clear Cardiovascular: Regular Rate, Rhythm, No Edema Gastrointestinal: Non Tender, Soft Neurologic/Psychiatric: Alert, Oriented x3, Normal Mood/Affect, colon therapist II-XII Norm as Tested Focused Exam Sepsis Stage: Ruled Out Progress/Results/Core Measures Results/Orders Lab Results Laboratory Tests Test 06/08/22 12:50 Range/Units White Blood Count 12.6 H 4.3-11.0 10^3/uL Red Blood Count 4.33 3.80-5.11 10^6/uL Hemoglobin 12.4 11.5-16.0 g/dL Hematocrit 37 35-52 % Mean Corpuscular Volume 85 80-99 fL Mean Corpuscular Hemoglobin 29 25-34 pg Mean Corpuscular Hemoglobin Concent 34 32-36 g/dL Red Cell Distribution Width 12.9 10.0-14.5 % Platelet Count 272 130-400 10^3/uL Mean Platelet Volume 10.1 9.0-12.2 fL Immature Granulocyte % (Auto) 0 % Neutrophils (%) (Auto) 58 42-75 % Lymphocytes (%) (Auto) 33 12-44 % Monocytes (%) (Auto) 7 0-12 % Eosinophils (%) (Auto) 3 0-10 % Basophils (%) (Auto) 0 0-10 % Neutrophils # (Auto) 7.3 1.8-7.8 10^3/uL Lymphocytes # (Auto) 4.1 H 1.0-4.0 10^3/uL Monocytes # (Auto) 0.8 0.0-1.0 10^3/uL Eosinophils # (Auto) 0.3 0.0-0.3 10^3/uL Basophils # (Auto) 0.1 0.0-0.1 10^3/uL Immature Granulocyte # (Auto) 0.0 0.0-0.1 10^3/uL Sodium Level 137 135-145 MMOL/L Potassium Level 4.5 3.6-5.0 MMOL/L Chloride Level 100 98-107 MMOL/L Carbon Dioxide Level 26 21-32 MMOL/L Anion Gap 11 5-14 MMOL/L Blood Urea Nitrogen 21 H 7-18 MG/DL Creatinine 1.16 0.60-1.30 MG/DL Estimat Glomerular Filtration Rate 54 BUN/Creatinine Ratio 18 Glucose Level 136 H 70-105 MG/DL Calcium Level 9.1 8.5-10.1 MG/DL Corrected Calcium 8.9 8.5-10.1 MG/DL Total Bilirubin 0.3 0.1-1.0 MG/DL Aspartate Amino Transf (AST/SGOT) 18 5-34 U/L Alanine Aminotransferase (ALT/SGPT) 20 0-55 U/L Alkaline Phosphatase 139 H 40-136 U/L Troponin I < 0.30 <0.30 NG/ML Total Protein 7.8 6.4-8.2 GM/DL Albumin 4.3 3.2-4.5 GM/DL My Orders Orders - SHANIQUE ALBERTO DO Cbc With Automated Diff (06/08/22 12:53) Comprehensive Metabolic Panel (06/08/22 12:53) Troponin I Fs (06/08/22 12:53) Ekg Tracing (06/08/22 12:53) Chest 1 View Ap/Pa Only (06/08/22 12:53) Ns Iv 1000 Ml (Sodium Chloride 0.9%) (06/08/22 13:15) Vital Signs/I&O 06/08/22 06/08/22 12:45 13:01 Temp 36.3 Pulse 82 75 78 81 Resp 18 B/P (MAP) 166/76 (106) 127/63 (84) 134/72 (92) 100/83 (89) Pulse Ox 100 O2 Delivery Room Air Blood Pressure Mean: 89 Departure Communication (Admissions) EKG: Normal sinus rhythm, no acute ST-T wave changes, normal CO, QRS, QTc intervals. Left atrial enlargement Chest x-ray: No acute cardiopulmonary disease Patient orthostatics positive with dizziness and hypotension upon standing. IV fluids given with provement systolic blood pressure greater than 140 on recheck. Labs imaging and EKG reviewed and reassuring. Recommendations for supportive care watchful waiting and cardiology follow-up as scheduled tomorrow. Return precautions reviewed. Patient verbalizes understanding agreement discharge instructions prior to departure Impression Primary Impression: Orthostatic hypotension Disposition: HOME, SELF-CARE Condition: Stable Departure-Patient Inst. Decision time for Depature: 14:09 Referrals: TESS TIM APRN (PCP) Primary Care Physician [facility] (Family) Primary Care Physician Patient Instructions: Orthostatic Hypotension (DC) Add. Discharge Instructions: You were evaluated in the emergency department for dizziness likely due to low blood pressure. Please hold evening dose of amlodipine and continue all other medications as directed. 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 Return to the ED if new or worsening symptoms. All discharge instructions reviewed with patient and/or family. Voiced understanding. SHANIQUE ALBERTO DO Jun 08, 2022 14:06
== END 2022-06-08 14:12 | disposition home or self-care (01) ==
LOC: EDUNIT# 12:40 → ER FS 12:42
DX: I95.1 Orthostatic hypotension (principal); Z79.899 Other long term (current) drug therapy
CPT/HCPCS: 36415; 71045; 80053; 84484; 85025; 93005; 93041

== ENCOUNTER → 2022-06-09 | Outpatient (CLI) | payer OTHER ==
[~2022-06-09] VITALS: Ht 157 cm; Wt 92.0 kg
[~2022-06-09] MED LIST changes: +CATHETER FLUSH 10 ML SYR IVP PRN; +REGADENOSON 0.4 MG/5 ML SYR (LEXISCAN) IV ONE
[2022-06-09 12:53] VITALS: BP 137/83
--- NOTE | 2022-06-09 13:51 | Cardiology Stress Test Report ---
Stress Test Report Date of Procedure/Referring: Date of Procedure: Jun 09, 2022 [facility] Admitting Physician Admitting Physician: Attending Physician: Carol Hassan Indications: CP Baseline Heart Rate: 92 Baseline Blood Pressure: Blood Pressure Systolic: 137 Blood Pressure Diastolic: 83 Baseline Vitals Vital Signs Date Time Temp Pulse Resp B/P (MAP) Pulse Ox O2 Delivery O2 Flow Rate FiO2 06/09/22 12:53 93 137/83 (101) Baseline EKG: Baseline EKG: NSR, PVCs Summary After explaining the procedure to the patient, she signed a consent and then brought to the stress nuclear laboratory. Patient received 0.4 mg Lexiscan for stress test, ECG, heart rate and blood pressure were monitored continuously. Resting and stress dose of radio tracer were injected, imaging was acquired and reviewed in short axis, horizontal long axis and vertical long axis views. TID: 1.18 SSS: 11 SDS: 8 EF: 60 1. Patient tolerated Lexiscan well, had some chest pain with Lexiscan injection 2. Frequent PVCs noted during test 3. Reversible ischemia involving the anterolateral and inferolateral wall 4. Normal left ventricular size with hypokinesia at the lateral wall, ejection fraction 60% Copy Copies To 1: [facility] DEVAUGHN CAIN MD Jun 09, 2022 13:51
== END ==
LOC: CARD 11:45
PROVIDERS: ATTEND Physician Assistant
DX: R07.9 Chest pain, unspecified (principal)
CPT/HCPCS: 78452; 93017

== ENCOUNTER 2022-06-14 09:00 | Day surgery (SDC) | payer OTHER ==
[~2022-06-14] VITALS: Ht 157.5 cm; Wt 94.0 kg
[2022-06-14] VITALS (26 sets, daily range): BP systolic 120–177; BP diastolic 59–104
--- NOTE | 2022-06-14 07:34 | Cardiac Procedure Note-CS/ASA ---
Pre-Procedure Note Pre-Op Procedure Note Date of Available H&P: Jun 14, 2022 Date H&P Reviewed: Jun 14, 2022 Time H&P Reviewed: 07:34 History & Physical: H&P Reviewed, Patient Examed, No changes noted Pre-Operative Diagnosis: Coronary artery disease Conscious Sedation Pre-Proced Time 07:34 ASA Score 3 For ASA 3 and 4: Consider anesthesia and medical clearance. Also, for patients with a history of failed moderate sedation consider anesthesia. Airway Lungs Heart ASA score ASA 1: a normal healthy patient ASA 2: a patient with a mild systemic disease (mid diabetes, controlled hypertension, obesity x ASA 3: a patient with a severe systemic disease that limits activity (angina, COPD, prior Myocardial infarction) ASA 4: a patient with an incapacitating disease that is a constant threat to life (CHF, renal failure) ASA 5: a moribund patient not expected to survive 24 hrs. (ruptured aneurysm) ASA 6: a declared brain- patient whose organs are being harvested. For emergent operations, add the letter E after the classification Mallampati Classification Grade 3 Sedation Plan Analgesia, Amnesia, Plan communicated to team members, Discussed options with patient/fam, Discussed risks with patient/fam The patient is an appropriate candidate to undergo the planned procedure, sedation, and anesthesia. The patient immediately re-assessed prior to indication. DEVAUGHN CAIN MD Jun 14, 2022 07:34
[2022-06-14 07:35] LABS: BILIRUBIN,URINE NEGATIVE (NEGATIVE); CLARITY,URINE CLEAR; COLOR,URINE YELLOW; GLUCOSE, URINE (UA) NEGATIVE (NEGATIVE); KETONES,URINE NEGATIVE (NEGATIVE); LEUKOCYTE ESTERASE ,URINE NEGATIVE (NEGATIVE); NITRITE,URINE POSITIVE (NEGATIVE); PH,URINE 5.5 (5-9); PROTEIN,URINE 1+ (NEGATIVE)
[2022-06-14 07:36] LABS: HEMATOCRIT 38 % (35-52); HEMOGLOBIN 12.5 g/dL (11.5-16.0); MEAN CORPUSCULAR HEMOGLOBIN 28 pg (25-34); MEAN CORPUSCULAR HGB CONC 33 g/dL (32-36); MEAN CORPUSCULAR VOLUME 86 fL (80-99); MEAN PLATELET VOLUME 9.9 fL (9.0-12.2); PLATELET COUNT 257 10^3/uL (130-400); WHITE BLOOD COUNT 10.5 10^3/uL (4.3-11.0)
[2022-06-14 07:43] LABS: BACTERIA,URINE LARGE /HPF; RBC,URINE RARE /HPF; SQUAMOUS EPITHELIAL CELL,UR 0-2 /HPF
[2022-06-14 07:44] LABS: HYALINE CASTS, URINE 0-2 /LPF
[2022-06-14 07:53] LABS: INR 1.1 (0.8-1.4); PROTHROMBIN TIME PATIENT 14.3 SEC (12.2-14.7)
[2022-06-14 07:58] LABS: ALBUMIN 4.2 GM/DL (3.2-4.5); BILIRUBIN,TOTAL 0.4 MG/DL (0.1-1.0); CALCIUM 9.8 MG/DL (8.5-10.1); CREATININE SERUM 1.07 MG/DL (0.60-1.30); POTASSIUM 3.9 MMOL/L (3.6-5.0); TOTAL PROTEIN 7.9 GM/DL (6.4-8.2)
--- NOTE | 2022-06-14 08:02 | Diagnostic Imaging Report ---
INDICATION: Coronary artery disease. Precatheterization workup. EXAMINATION: Chest 06/14/2022 COMPARISON: 06/08/2022 FINDINGS: There are sternotomy wires and mediastinal clips. The heart is stable. Pulmonary vasculature normal. Lungs and pleural spaces clear. No infiltrates, effusions or pneumothorax. IMPRESSION: 1. Postoperative findings with no acute cardiopulmonary process. Dictated by: Dictated on workstation # [id number]
[~2022-06-14 09:00] MED LIST changes: +AMLO-251 PO; +ASPI-1238 PO; +ATOR40TA70 PO; +BUDE10.26 IH; -CATHETER FLUSH 10 ML SYR IVP PRN; +CINNAMON 1000 MG PO; +FISH1CAP5 PO; +HEParin (CATH LAB) 2,000 ML IV ONE; +HEParin 1000 UNIT/ML (10ML VIAL) FOR BOLUS ONE; +ISOS30TA82 PO; +LIDOCAINE 1% INJ 20 ML VIAL ONE; +LOSA100T57 PO; +METF750T45 PO; +MIDAZOLAM 5 MG/5 ML (VERSED) VIAL ONE; +NITRO DRIP 25000 MCG/D5W 0 ML IV ONE; +NS IV 1000 ML 1,000 ML IV SCH; +NS IV 1000 ML 1,000 ML ONE; -REGADENOSON 0.4 MG/5 ML SYR (LEXISCAN) IV ONE; +fentaNYL INJ 100 MCG/2 ML AMP ONE
[2022-06-14] MEDS ORDERED: ASPIRIN 325 MG (5 GR) TABLET ONE (09:25)
[2022-06-14] MEDS ORDERED: TICAGRELOR 90 MG TABLET (BRILINTA) PO ONE (09:25)
[2022-06-14] MEDS ORDERED: PATIENT MAY USE OWN MEDS, ALL PO SCH (09:30)
--- NOTE | 2022-06-14 09:32 | Cardiac Cath Report ---
Cardiac Cath Report Physician (s)/Hydroelectric Station Operator (s) Physician DEVAUGHN CAIN MD Pre-Procedure Diagnosis Pre-Procedure Diagnosis: Coronary artery disease Post-Procedure Note Procedure Start Date: Jun 14, 2022 Name of Procedure: Left heart catheterization Vein graft angiogram GALEANA angiogram Stenting of the circumflex artery Findings/Procedure Note PROCEDURE NOTE: 61-year-old lady with history of coronary artery disease, has been having chest pain, had an abnormal stress test and scheduled for cardiac catheterization possible PTCA. After explaining the procedure to the patient, all pros and cons were explained, all questions were answered. The patient signed the consent and then she was placed on the cardiac catheterization laboratory. Groin was prepped SL fashion local anesthesia was used. Sheath placed in the artery. Robbin right and left catheter were used to access the coronary system.Vein Graft evaluated. GALEANA evaluated. Patient received 5000 units of heparin, had severe stenosis in the distal circumflex artery, I started with FL 4.0 guide advanced wire and I was unable to cross the lesion. I advanced 2.0 balloon for support of the wire and then I was able to cross the lesion but I was unable to cross the balloon across the lesion. I decided to exchanged the guide I remove the wire and the balloon then I used CLS guide and repositioned the BMW wire distal in the circumflex artery, I had some difficulty advancing the balloon but I was able to advance it then I did multiple inflation using trek 2.5 x 20 then I proceeded with stent deployment using skypoint 2.5 x 18 deployed under 14 reggie up to 2.77, angiogram showing excellent results. At the end of the procedure the sheath was removed. Closure device was deployed FINDINGS: ANATOMY: Left Main is free of obstructive disease Left Anterior Descending is calcified with moderate disease, GALEANA to the LAD is patent with competitive flow Left Circumflex has calcification proximally with moderate stenosis, distally subtotal occlusion, successful balloon angioplasty then deployment of portillo point 2.5 x 18 mm expanded to 2.77 mm with excellent results. There are 2 vein grafts known to be occluded Right Coronary Artery has severe stenosis at the midportion, vein graft to the right coronary artery is patent GALEANA to the LAD is patent, there is competitive flow through the nome artery Vein Graft evaluation showed 3 vein grafts. 2 vein graft to the diagonal and obtuse marginal are known to be occluded Vein graft to the right coronary artery is patent with good flow distally, small vessel disease CONCLUSION: 1. Severe stenosis/subtotal occlusion in the distal circumflex artery with known occluded vein graft to the circumflex artery, successful balloon angioplasty then stent deployment using portillo point 2.5 x 18 expanded to 2.77 with excellent results. 2. Severe stenosis in the mid right coronary artery with patent vein graft to the distal right coronary artery with excellent flow distally, small vessel disease 3. Moderate stenosis in the proximal LAD with patent GALEANA to LAD with competitive flow DISCUSSION AND RECOMMENDATION: Patient was started on aspirin and Brilinta. Continue to maximize medical therapy Anesthesia Type: Conscious Sedation Estimated blood loss (mL): 25 ml Contrast Amount: 150 ml Total Radiation Dose: 1278 mGy Post-Procedure Diagnosis Post-operative diagnosis: Chest pain Coronary artery disease Hypertension Hyperlipidemia DEVAUGHN CAIN MD Jun 14, 2022 09:32
[2022-06-14] MEDS: NS IV 1000 ML 1,000 ML IV SCH ×2 (10:15→19:30)
[2022-06-14] MEDS ORDERED: CATHETER FLUSH 10 ML SYR IVP PRN (10:15)
[2022-06-14] MEDS: TICAGRELOR 90 MG TABLET (BRILINTA) PO SCH (20:07)
[2022-06-14] MEDS ORDERED: BUDESONIDE/FORMOTEROL 160/4.5 MCG INHALER IH SCH (21:00)
[2022-06-14] MEDS ORDERED: RT-ALBUTEROL SULF 2.5 MG/3 ML PRE-MIX VIAL INH SCH (21:00)
[2022-06-14] MEDS ORDERED: MONTELUKAST 10 MG (SINGULAIR) TAB PO SCH (21:00)
[2022-06-14] MEDS ORDERED: meTOprolol TARTRATE 50 MG (LOPRESSOR) TAB PO SCH (21:00)
[2022-06-15 04:12] VITALS: BP 142/67
[2022-06-15] MEDS ORDERED: METF750T45 PO (05:50)
[2022-06-15] MEDS ORDERED: TICA90TA PO (05:50)
--- NOTE | 2022-06-15 05:51 | Discharge Inst-Post CATH ---
Discharge Inst-CATH/EP Problems Reviewed?: Yes Post Cardiac Cath/EP D/C Inst Follow Up/Plan Hold Metformin for [address] Mercado in 2-4 weeks <b>CARDIAC CATH/EP PROCEDURE DISCHARGE INSTRUCTIONS</b> ACTIVITY * Go Home directly and rest. * Limit activity of the leg (or wrist if it was used) for 7 days including aerobics, swimming, jogging, bicycling, etc. * Restrict stair-climbing for 7 days if possible, if not, climb up with your non-cath leg, then bring together on the same step. * Avoid lifting, pushing, pulling or excessive movement of the affected extremity for 7 days. * Customary sexual activity may be resumed after 2 days-use caution not to use a position that strains or causes pain to the affected extremity. * No driving for 24 hours. * NO SMOKING. * Avoid straining for bowel movements for 7 days. * Gentle walking on level ground is allowed. * Returning to work will depend on the type of procedure and the results. Your doctor will discuss this with you. CALL YOUR DOCTOR FOR ANY OF THE FOLLOWING: *If bleeding from the puncture site occurs- Apply gentle pressure to site with clean cloth and call your doctor or EMS. * If a knot or lump forms under the skin, increases in size, or causes pain. * If bruising appears to be worsening or moving further down your leg instead of disappearing. * Temperature above 101 F. CARE OF YOUR GROIN INCISION; * Bruising or purple discoloration of the skin near the puncture site is common. * You may shower only, no bathtub bathing for 5 days. Be careful to avoid slipping as your leg may feel stiff. * If a closure device was used on your femoral artery, please see the attached guide regarding care of the device and your leg. * Leave dressing on FOR 24 hours. CARE OF YOUR WRIST INCISION; * Bruising or purple discoloration of the skin near the puncture site is common. * You may shower. * DO NOT submerge wrist. * Leave dressing on FOR 24 hours. DEVAUGHN MERCADO MD Jun 15, 2022 05:51
[2022-06-15 06:03] LABS: HEMATOCRIT 34 % (35-52); HEMOGLOBIN 11.6 g/dL (11.5-16.0); MEAN CORPUSCULAR HEMOGLOBIN 29 pg (25-34); MEAN CORPUSCULAR HGB CONC 34 g/dL (32-36); MEAN CORPUSCULAR VOLUME 85 fL (80-99); MEAN PLATELET VOLUME 10.3 fL (9.0-12.2); PLATELET COUNT 190 10^3/uL (130-400); WHITE BLOOD COUNT 9.6 10^3/uL (4.3-11.0)
[2022-06-15] MEDS: NS IV 1000 ML 1,000 ML IV SCH (06:16)
[2022-06-15 06:25] LABS: CALCIUM 9.1 MG/DL (8.5-10.1); CREATININE SERUM 0.9 MG/DL (0.60-1.30); POTASSIUM 3.7 MMOL/L (3.6-5.0)
[2022-06-15] MEDS ORDERED: KCL 10 MEQ TAB (MICRO K) PO SCH ×2 (07:00→09:00)
[2022-06-15 08:00] VITALS: BP 144/80
--- NOTE | 2022-06-15 08:07 | Cardiology Progress Note ---
Subjective Date Seen by Provider: Jun 15, 2022 Time Seen by Provider: 08:05 Subjective/Events-last exam Patient was seen at bedside, laying down comfortably, feeling better Groin is healing well Review of Systems General: No Chills, No Night Sweats, No Fatigue, No Malaise, No Appetite, No Other HEENT: No Head Aches, No Visual Changes, No Eye Pain, No Ear Pain, No Dy sphasia, No Sinus Congestion, No Post Nasal Drip, No Sore Throat, No Other Pulmonary: No Dyspnea, No Cough, No Pleuritic Chest Pain, No Other Cardiovascular: No: Chest Pain, Palpitations, Orthopnea, Paroxysmal Noc. Dyspnea, Edema, Lt Headedness, Other Objective-Cardiology Exam Last Set of Vital Signs Vital Signs 06/15/22 06/15/22 04:12 07:17 Temp 36.5 Pulse 81 Resp 16 B/P (MAP) 142/67 (92) Pulse Ox 100 O2 Delivery Nasal Cannula O2 Flow Rate 2.00 General: Alert, Oriented X3, Cooperative HEENT: Atraumatic, PERRLA Neck: Supple, No JVD, No Thyromegaly Lungs: Clear to Auscultation, Normal Air Movement Heart: Regular Rate, Normal S1, Normal S2, No Murmurs Abdomen: Normal Bowel Sounds, Soft, No Tenderness, No Hepatosplenomegaly, No Masses Extremities: No Clubbing, No Cyanosis, No Edema, Normal Pulses, No Tenderness/Swelling Skin: No Rashes, No Breakdown, No Significant Lesion Neuro: Normal Gait, Normal Speech, Strength at 5/5 X4 Ext, Normal Tone, Sensation Intact Psych/Mental Status: Mental Status NL, Mood NL Results Lab Laboratory Tests 06/15/22 05:15 A/P-Cardiology Assessment/Plan Coronary artery disease, history of CABG, multiple intervention Cardiac catheterization was carried out on June 14, 2022 1. Severe stenosis/subtotal occlusion in the distal circumflex artery with known occluded vein graft to the circumflex artery, successful balloon angioplasty then stent deployment using portillo point 2.5 x 18 expanded to 2.77 with excellent results. 2. Severe stenosis in the mid right coronary artery with patent vein graft to the distal right coronary artery with excellent flow distally, small vessel disease 3. Moderate stenosis in the proximal LAD with patent GALEANA to LAD with competitive flow Hypertension, continue current medication Hyperlipidemia, monitor lipids Diabetes mellitus, educated on holding metformin until . DEVAUGHN CAIN MD Jun 15, 2022 08:07
[2022-06-15] MEDS: TICAGRELOR 90 MG TABLET (BRILINTA) PO SCH (08:52)
[2022-06-15] MEDS ORDERED: ASPIRIN E.C. 81 MG (ECOTRIN) TAB PO SCH ×2 (09:00)
[2022-06-15] MEDS ORDERED: ISOSORBIDE MONONITRATE 30 MG (IMDUR) TAB PO SCH (09:00)
[2022-06-15] MEDS ORDERED: NON-FORMULARY MEDICATION 1 EA EA (Potassium Chloride 20 MEQ) PO SCH (09:00)
[2022-06-15] MEDS ORDERED: LOSARTAN 100 MG (COZAAR) TABLET PO SCH (09:00)
[2022-06-15] MEDS ORDERED: FUROSEMIDE 40 MG (LASIX) TAB PO SCH (09:00)
[2022-06-15] MEDS ORDERED: amLODIPine 10 MG (NORVASC) TAB PO SCH (09:00)
== END 2022-06-15 09:10 | disposition home or self-care (01) ==
LOC: CATH 09:00 → CSD 09:52 → CATH 06-15 09:10
PROVIDERS: ATTEND Internal Medicine Cardiovascular Disease
DX: I25.10 Atherosclerotic heart disease of native coronary artery without angina pectoris (principal); I10 Essential (primary) hypertension; E78.5 Hyperlipidemia, unspecified
CPT/HCPCS: 36415; 71045; 80048; 80053; 80061; 81000; 85027; 85610; 85730; 87081; 87088; 87186; 93005; 93459

== ENCOUNTER 2022-06-27 12:43 | Emergency (ER) | payer OTHER ==
[~2022-06-27] VITALS: Ht 157.5 cm; Wt 91.3 kg
[~2022-06-27 12:43] MED LIST changes: -HEParin (CATH LAB) 2,000 ML IV ONE; -HEParin 1000 UNIT/ML (10ML VIAL) FOR BOLUS ONE; -LIDOCAINE 1% INJ 20 ML VIAL ONE; -MIDAZOLAM 5 MG/5 ML (VERSED) VIAL ONE; -NITRO DRIP 25000 MCG/D5W 0 ML IV ONE; -NS IV 1000 ML 1,000 ML IV SCH; -NS IV 1000 ML 1,000 ML ONE; +POTA-177 PO; -POTA10TA37 PO; +TICA90TA PO; -fentaNYL INJ 100 MCG/2 ML AMP ONE
[2022-06-27] MEDS ORDERED: NS IV 1000 ML 1,000 ML IV SCH (13:00)
[2022-06-27 13:06] LABS: BILIRUBIN,URINE NEGATIVE (NEGATIVE); COLOR,URINE YELLOW; GLUCOSE, URINE (UA) NEGATIVE (NEGATIVE); KETONES,URINE NEGATIVE (NEGATIVE); LEUKOCYTE ESTERASE ,URINE 3+ (NEGATIVE); NITRITE,URINE POSITIVE (NEGATIVE); PH,URINE 5.5 (5-9); PROTEIN,URINE NEGATIVE (NEGATIVE)
[2022-06-27 13:08] LABS: BASOPHILS # (AUTO) 0.1 10^3/uL (0.0-0.1); BASOPHILS % (AUTO) 1 % (0-10); EOSINOPHILS # (AUTO) 0.3 10^3/uL (0.0-0.3); EOSINOPHILS % (AUTO) 2 % (0-10); HEMATOCRIT 35 % (35-52); HEMOGLOBIN 11.9 g/dL (11.5-16.0); LYMPHOCYTES # (AUTO) 3.3 10^3/uL (1.0-4.0); LYMPHOCYTES % (AUTO) 25 % (12-44); MEAN CORPUSCULAR HEMOGLOBIN 29 pg (25-34); MEAN CORPUSCULAR HGB CONC 34 g/dL (32-36); MEAN CORPUSCULAR VOLUME 84 fL (80-99); MONOCYTES # (AUTO) 0.8 10^3/uL (0.0-1.0); MONOCYTES % (AUTO) 6 % (0-12); NEUTROPHILS # (AUTO) 8.5 10^3/uL (1.8-7.8); NEUTROPHILS % (AUTO) 65 % (42-75); PLATELET COUNT 362 10^3/uL (130-400)
[2022-06-27 13:09] LABS: CLARITY,URINE CLOUDY; WBC,URINE TNTC /HPF
--- NOTE | 2022-06-27 13:19 | ED Headache ---
General Chief Complaint: Head/Cervical Problems Stated Complaint: HEADACHE; DIZZINESS Source: patient Exam Limitations: no limitations History of Present Illness Date Seen by Provider: Jun 27, 2022 Time Seen by Provider: 13:30 Initial Comments Patient is 61-year-old female with history of coronary disease with recent stent placement who presents with dizziness upon standing with headache. Patient has had similar symptoms with dehydration. No nausea or vomiting. No fever chills or sweats. No chest pain palpitation shortness of breath. No abdominal pain. No leg pain or swelling. No other acute symptoms or complaints. Timing/Duration: 24 hours Severity/Quality: mild Location: other Prior Headaches/Recent Trauma: other Modifying Factors: improves with other Associated Symptoms: other Allergies and Home Medications Allergies Coded Allergies: No Known Drug Allergies (Unverified , 08/14/19) Patient Home Medication List Home Medication List Reviewed: Yes Albuterol Sulfate (Proventil Hfa) 6.7 Gm Hfa.aer.ad, 6.7 GM INH q6 Prescribed by: SHANIQUE ALBERTO on 08/14/19 170 Amlodipine Besylate (Amlodipine Besylate) 10 Mg Tablet, 10 MG PO DAILY, (Reported) Entered as Reported by: SUSY PHELPS on 06/14/22746 Aspirin (Aspirin EC) 81 Mg Tablet.dr, 81 MG PO DAILY, (Reported) Entered as Reported by: SUSY PHELPS on 06/14/22746 Atorvastatin Calcium (Atorvastatin Calcium) 40 Mg Tablet, 40 MG PO DAILY, (Reported) Entered as Reported by: SUSY PHELPS on 06/14/22746 Budesonide/Formoterol Fumarate (Budesonide-Formoterol 160-4.5) 160 Mcg-4.5 Mcg/Actuation Hfa.aer.ad, 2 PUFF IH BID, (Reported) Entered as Reported by: SUSY PHELPS on 06/14/22746 Fish,Saf,Flx,Brg Oils/O3,6,9#2 (Uybz-Yfrt-Lvjbws Oil Softgel) 800 Mg-200 Mg-150 Mg-50 Mg Capsule, 2 EACH PO EVENING, (Reported) Entered as Reported by: SUSY PHELPS on 06/14/22746 Furosemide (Furosemide) 40 Mg Tablet, 40 MG PO DAILY, (Reported) Entered as Reported by: MAHIN HACKETT on 04/24/21 08 Isosorbide Mononitrate (Isosorbide Mononitrate ER) 30 Mg Tab.er.24h, 30 MG PO DAILY, (Reported) Entered as Reported by: SUSY PHELPS on 06/14/22 07 Losartan Potassium (Losartan Potassium) 100 Mg Tablet, 100 MG PO DAILY, (Reported) Entered as Reported by: SUSY PHELPS on 06/14/22746 Metformin HCl (Metformin HCl ER) 750 Mg Tab.er.24h, 1,500 MG PO DAILY Prescribed by: DEVAUGHN CAIN on 06/15/22 0550 Metoprolol Tartrate (Metoprolol Tartrate) 50 Mg Tablet, 50 MG PO BID, (Reported) Entered as Reported by: MAHIN HACKETT on 04/24/21810 Montelukast Sodium (Montelukast Sodium) 10 Mg Tablet, 10 MG PO HS, (Reported) Entered as Reported by: MAHIN HACKETT on 04/24/21810 Potassium Chloride (Potassium Chloride) 10 Meq Tab.er.prt, 20 MEQ PO DAILY, (Reported) Entered as Reported by: MAHIN HACKETT on 04/24/21 08 Ticagrelor (Brilinta) 90 Mg Tablet, 90 MG PO BID Prescribed by: DEVAUGHN CAIN on 06/15/22 0550 Vit D3 & K/Berberine HCl/Hops (Ostera Tablet) 1 Each Tablet, 1 EACH PO DAILY, (Reported) Entered as Reported by: MAHIN HACKETT on 04/24/21 08 [Cinnamon 1000MG] , 2,000 MG PO DAILY, (Reported) Entered as Reported by: SUSY PHELPS on 06/14/2247 Review of Systems Review of Systems Constitutional: see HPI Eyes: See HPI Ears, Nose, Mouth, Throat: see HPI Respiratory: see HPI Cardiovascular: see HPI Gastrointestinal: see HPI Genitourinary: see HPI : No Musculoskeletal: see HPI Skin: see HPI Psychiatric/Neurological: See HPI Past Bmvianp-Ieibkl-Vsamep Hx Patient Social History Tobacco Use?: Yes Immunizations Up To Date Tetanus Booster (TDap): Unknown First/Initial COVID19 Vaccinat: 2020 Second COVID19 Vaccination Kapil: 2020 Seasonal Allergies Seasonal Allergies: Yes Past Medical History Surgery/Hospitalization HX: CABG 1999 Surgeries: Yes CABG, Open Heart Surgery Respiratory: Yes Asthma Currently Using CPAP: No Currently Using BIPAP: No Cardiac: Yes Coronary Artery Disease, High Cholesterol, Hypertension Neurological: No Genitourinary: No Gastrointestinal: Yes Hepatitis Musculoskeletal: No Endocrine: Yes Diabetes, Non-Insulin dep HEENT: No Cancer: No Psychosocial: No Integumentary: No Physical Exam Vital Signs Capillary Refill : Height, Weight, BMI Height: '" Weight: lbs. oz. kg; 37.89 BMI Method: General Appearance: WD/WN, no apparent distress HEENT: PERRL/EOMI, normal ENT inspection Neck: non-tender, full range of motion, supple Cardiovascular: normal peripheral pulses, regular rate, rhythm Respiratory: chest non-tender, lungs clear, normal breath sounds Gastrointestinal: non tender, soft Back: normal inspection, no CVA tenderness Psychiatric: alert, oriented x 3 Crainal Nerves: normal speech, PERRL Skin: normal color, warm/dry Progress/Results/Core Measures Results/Orders Lab Results Laboratory Tests Test 06/27/22 12:50 06/27/22 13:05 Range/Units Urine Color YELLOW Urine Clarity CLOUDY Urine pH 5.5 5-9 Urine Specific [place] 1.015 L 1.016-1.022 Urine Protein NEGATIVE NEGATIVE Urine Glucose (UA) NEGATIVE NEGATIVE Urine Ketones NEGATIVE NEGATIVE Urine Nitrite POSITIVE H NEGATIVE Urine Bilirubin NEGATIVE NEGATIVE Urine Urobilinogen 0.2 < = 1.0 MG/DL Urine Leukocyte Esterase 3+ H NEGATIVE Urine RBC (Auto) TRACE-I H NEGATIVE Urine RBC /HPF Urine WBC TNTC H /HPF Urine Crystals NONE /LPF Urine Bacteria /HPF Urine Casts NONE /LPF Urine Mucus NEGATIVE /LPF Urine Culture Indicated YES White Blood Count 13.0 H 4.3-11.0 10^3/uL Red Blood Count 4.15 3.80-5.11 10^6/uL Hemoglobin 11.9 11.5-16.0 g/dL Hematocrit 35 35-52 % Mean Corpuscular Volume 84 80-99 fL Mean Corpuscular Hemoglobin 29 25-34 pg Mean Corpuscular Hemoglobin Concent 34 32-36 g/dL Red Cell Distribution Width 13.1 10.0-14.5 % Platelet Count 362 130-400 10^3/uL Mean Platelet Volume 10.0 9.0-12.2 fL Immature Granulocyte % (Auto) 1 % Neutrophils (%) (Auto) 65 42-75 % Lymphocytes (%) (Auto) 25 12-44 % Monocytes (%) (Auto) 6 0-12 % Eosinophils (%) (Auto) 2 0-10 % Basophils (%) (Auto) 1 0-10 % Neutrophils # (Auto) 8.5 H 1.8-7.8 10^3/uL Lymphocytes # (Auto) 3.3 1.0-4.0 10^3/uL Monocytes # (Auto) 0.8 0.0-1.0 10^3/uL Eosinophils # (Auto) 0.3 0.0-0.3 10^3/uL Basophils # (Auto) 0.1 0.0-0.1 10^3/uL Immature Granulocyte # (Auto) 0.1 0.0-0.1 10^3/uL Sodium Level 134 L 135-145 MMOL/L Potassium Level 4.7 3.6-5.0 MMOL/L Chloride Level 98 98-107 MMOL/L Carbon Dioxide Level 24 21-32 MMOL/L Anion Gap 12 5-14 MMOL/L Blood Urea Nitrogen 30 H 7-18 MG/DL Creatinine 1.53 H 0.60-1.30 MG/DL Estimat Glomerular Filtration Rate 38 BUN/Creatinine Ratio 20 Glucose Level 142 H 70-105 MG/DL Calcium Level 9.6 8.5-10.1 MG/DL Corrected Calcium 9.4 8.5-10.1 MG/DL Total Bilirubin 0.4 0.1-1.0 MG/DL Aspartate Amino Transf (AST/SGOT) 14 5-34 U/L Alanine Aminotransferase (ALT/SGPT) 15 0-55 U/L Alkaline Phosphatase 98 40-136 U/L Total Protein 7.6 6.4-8.2 GM/DL Albumin 4.2 3.2-4.5 GM/DL My Orders Orders - SHANIQUE ALBERTO DO Cbc With Automated Diff (06/27/22 12:53) Comprehensive Metabolic Panel (06/27/22 12:53) Ua Culture If Indicated (06/27/22 12:53) Ns Iv 1000 Ml (Sodium Chloride 0.9%) (06/27/22 13:00) Urine Culture (06/27/22 12:50) Ceftriaxone (Rocephin) (06/27/22 13:45) Departure Communication (Admissions) Labs reviewed. Patient with mild dehydration with urinary tract infection. Symptoms improved with treatment. Recommendations supportive care watchful waiting PCP follow-up. Return precautions reviewed. Patient verbalizes unde rstanding agreement discharge instructions prior to departure peer Impression Primary Impression: Dizziness Additional Impression: Urinary tract infection Disposition: HOME, SELF-CARE Condition: Stable Departure-Patient Inst. Decision time for Depature: 13:43 Referrals: TESS TIM APRN (PCP) Primary Care Physician [facility] (Family) Primary Care Physician Patient Instructions: Urinary Tract Infection, Adult (DC), Dizziness, Adult ED Add. Discharge Instructions: You were evaluated in the emergency department for dizziness and headache. Your symptoms are consistent with mild dehydration with urinary tract infection. Please increase daily fluids continue home meds and take newly prescribed antibiotics as directed. Follow-up with your office support's office in the next 1 to 2 days. Return to the ED if new or worsening symptoms. All discharge instructions reviewed with patient and/or family. Voiced understanding. Scripts Cephalexin (Cephalexin) 500 Mg Tablet 500 MG PO TID, #9 TAB Prov: SHANIQUE ALBERTO DO 06/27/22 SHANIQUE ALBERTO DO Jun 27, 2022 13:19
[2022-06-27 13:26] LABS: POTASSIUM 4.7 MMOL/L (3.6-5.0)
[2022-06-27 13:27] LABS: ALBUMIN 4.2 GM/DL (3.2-4.5); BILIRUBIN,TOTAL 0.4 MG/DL (0.1-1.0); CALCIUM 9.6 MG/DL (8.5-10.1); CREATININE SERUM 1.53 MG/DL (0.60-1.30); TOTAL PROTEIN 7.6 GM/DL (6.4-8.2)
[2022-06-27] MEDS ORDERED: cefTRIAXone 1 GM PRE-MIX 50 ML IV ONE (13:45)
[2022-06-27] MEDS ORDERED: CEPH500T PO (13:45)
[2022-06-27] MEDS ORDERED: cefTRIAXone 1,000 MG VIAL IV ONE (13:45)
[2022-06-27 14:17] VITALS: BP 148/67
== END 2022-06-27 14:18 | disposition home or self-care (01) ==
LOC: EDUNIT# 12:43 → ER FS 12:45
DX: E86.0 Dehydration (principal); N39.0 Urinary tract infection, site not specified
CPT/HCPCS: 36415; 80053; 81000; 85025; 87077; 87088; 87186